=== PATIENT | male | born 1945 | race Caucasian/White ===

== ENCOUNTER 2017-06-13 16:37 | Inpatient (IN) | payer MEDICARE, MEDICAID ==
[~2017-06-13] VITALS: Ht 167.6 cm; Wt 91.6 kg
[~2017-06-13 16:37] MED LIST: ASPI-1158; ATEN50TA PO; ATOR10TA; FENO35TA2; FLOMAX; HYDR25TA; LOSARTAN PO; SUCR1ORA PO; TOLT4CAP
[2017-06-13] MEDS ORDERED: LORAZEPAM 1MG TABLET PO ONE (17:45)
[2017-06-13 18:27] LABS: BASOPHILS % 0.7 % (0.0-2.0); EOSINOPHILS % 2.6 % (0.0-5.0); HEMATOCRIT. 42.9 % (42.0-52.0); HEMOGLOBIN. 14.9 g/dL (14.0-18.0); MEAN CORPUSCULAR HEMOGLOBIN 31.9 pg (28.0-32.0); MEAN CORPUSCULAR VOLUME 91.9 fL (80.0-94.0); MEAN PLATELET VOLUME 7.5 fl (7.4-10.4); MONOCYTES % 12.7 % (2.0-8.0); PLATELET 135 x1000/uL (130-400); RED BLOOD CELL COUNT 4.66 mill/uL (4.7-6.1); RED CELL DISTRIBUTION WIDTH 12.8 % (11.6-14.6)
[2017-06-13 18:31] LABS: CHLORIDE 107 mEq/L (98-107)
[2017-06-13 18:35] LABS: CARBON DIOXIDE 27 mEq/L (21-32); ETHANOL BLOOD < 10 mg/dL
[2017-06-13 18:36] LABS: D-DIMER 0.34 mg/L FEU (<0.50); PROTHROMBIN TIME 10.9 sec (9.4-11.6)
[2017-06-13 18:40] LABS: CREATINE KINASE 79 IU/L (39-308)
[2017-06-13 18:42] LABS: TROPONIN I < 0.02 ng/mL (0.00-0.04)
[2017-06-13 19:39] LABS: CLARITY URINE CLEAR (CLEAR); COLOR URINE YELLOW (YELLOW); GLUCOSE URINE NEGATIVE (NEGATIVE); KETONES URINE NEGATIVE (NEGATIVE); LEUKOCYTE ESTERASE URINE NEGATIVE (NEGATIVE); NITRITE URINE NEGATIVE (NEGATIVE); OCCULT BLOOD URINE NEGATIVE (NEGATIVE); PROTEIN URINE NEGATIVE (NEGATIVE)
[2017-06-13 19:48] LABS: *AMPHETAMINES SCREEN URINE NEGATIVE (NEGATIVE); *BARBITURATES SCREEN URINE NEGATIVE (NEGATIVE); *BENZODIAZEPINES SCREEN URINE NEGATIVE (NEGATIVE); *COCAINE SCREEN URINE NEGATIVE (NEGATIVE); CANNABINOID URINE SCREEN NEGATIVE (NEGATIVE); METHADONE URINE SCREEN NEGATIVE (NEGATIVE); OPIATES URINE SCREEN NEGATIVE (NEGATIVE); PHENCYCLIDINE URINE SCREEN NEGATIVE (NEGATIVE)
[2017-06-13] MEDS ORDERED: ASPIRIN 81MG TABLET PO ONE (21:15)
[2017-06-14 00:26] VITALS: BP 117/83
[2017-06-14] MEDS ORDERED: OMEP40CA34 PO (00:56)
[2017-06-14] MEDS ORDERED: OMEG100016 PO (00:56)
[2017-06-14] MEDS ORDERED: IPRATROPIUM/ALBUTEROL 0.5-3(2.5)MG/3ML NEB INH PRN (01:00)
[2017-06-14] MEDS ORDERED: MAGNESIUM/ALUMINUM HYDROXIDE/SIMETHICONE 30ML UDC PO PRN (01:00)
[2017-06-14] MEDS ORDERED: ACETAMINOPHEN 325MG TABLET PO PRN (01:00)
[2017-06-14] MEDS ORDERED: CLONIDINE 0.1MG TABLET PO PRN (01:00)
[2017-06-14] MEDS ORDERED: ONDANSETRON HCL 4MG/2ML VIAL IV PRN (01:00)
[2017-06-14] MEDS ORDERED: DOCUSATE SODIUM 100MG CAPSULE PO PRN (01:00)
[2017-06-14] MEDS ORDERED: HYDROCODONE/ACETAMINOPHEN 5/325MG TABLET PO PRN (01:00)
[2017-06-14 04:00] VITALS: BP 100/61
[2017-06-14 07:43] LABS: CARBON DIOXIDE 27 mEq/L (21-32); CHLORIDE 106 mEq/L (98-107); CREATINE KINASE 71 IU/L (39-308); CREATINE KINASE MB FRACTION 0.8 ng/mL (0.5-3.6); HDL CHOLESTEROL 34 mg/dL (40-59); LDL CHOLESTEROL 98 mg/dL (5-100); TROPONIN I < 0.02 ng/mL (0.00-0.04)
[2017-06-14 07:56] LABS: BASOPHILS % 0.5 % (0.0-2.0); HEMATOCRIT. 46.4 % (42.0-52.0); HEMOGLOBIN. 16.3 g/dL (14.0-18.0); LYMPHOCYTES % 21.9 % (20.0-50.0); MEAN CORPUSCULAR HEMOGLOBIN 32.5 pg (28.0-32.0); MEAN CORPUSCULAR VOLUME 92.2 fL (80.0-94.0); MEAN PLATELET VOLUME 7.9 fl (7.4-10.4); MONOCYTES % 11.4 % (2.0-8.0); NEUTROPHILS % 64.2 % (40.0-76.0); PLATELET 143 x1000/uL (130-400); RED BLOOD CELL COUNT 5.03 mill/uL (4.7-6.1)
[2017-06-14 08:00] VITALS: BP 120/82
[2017-06-14] MEDS ORDERED: ENOXAPARIN 30MG/0.3ML SYR SUBCUT SCH (09:00)
[2017-06-14] MEDS: ASPIRIN 81MG EC TABLET PO SCH (09:02)
[2017-06-14 11:45] VITALS: BP 126/82
[2017-06-14] MEDS: LOSARTAN POTASSIUM 50 MG TABLET PO SCH (16:08)
[2017-06-14] MEDS: ATENOLOL 100 MG TABLET PO SCH (16:08)
[2017-06-14] MEDS: APIXABAN 5 MG TABLET PO SCH (16:08)
[2017-06-14 16:11] VITALS: BP 154/81
[2017-06-14 16:58] LABS: CREATINE KINASE 61 IU/L (39-308); CREATINE KINASE MB FRACTION 0.9 ng/mL (0.5-3.6); TROPONIN I < 0.02 ng/mL (0.00-0.04)
[2017-06-14 17:08] LABS: HEPATITIS B SURFACE ANTIGEN NEGATIVE
[2017-06-14 17:36] LABS: HEPATITIS B CORE AB IGM NEGATIVE
[2017-06-14 20:00] VITALS: BP 102/53
[2017-06-15] VITALS (7 sets, daily range): BP systolic 106–134; BP diastolic 62–72
[2017-06-15] MEDS: OMEPRAZOLE 20MG CAPSULE EXTENDED RELEASE PO SCH (05:50)
[2017-06-15] MEDS: APIXABAN 5 MG TABLET PO SCH (08:48)
[2017-06-15] MEDS: ASPIRIN 81MG EC TABLET PO SCH (08:48)
[2017-06-15] MEDS: ATENOLOL 100 MG TABLET PO SCH (08:48)
[2017-06-15] MEDS: LOSARTAN POTASSIUM 50 MG TABLET PO SCH (08:48)
[2017-06-15] MEDS: FISH OIL/OMEGA-3 FATTY ACIDS 1000MG CAPSULE PO SCH (08:48)
[2017-06-15] MEDS ORDERED: ASPIRIN 81MG EC TABLET PO SCH (09:00)
[2017-06-15] MEDS: METOPROLOL TARTRATE 50MG TABLET PO SCH (20:18)
[2017-06-16 04:00] VITALS: BP 130/72
[2017-06-16] MEDS: OMEPRAZOLE 20MG CAPSULE EXTENDED RELEASE PO SCH (06:14)
[2017-06-16 08:00] VITALS: BP 137/62
[2017-06-16] MEDS ORDERED: ASPIRIN 325MG EC TABLET PO SCH (09:00)
[2017-06-16] MEDS: FISH OIL/OMEGA-3 FATTY ACIDS 1000MG CAPSULE PO SCH (09:10)
[2017-06-16] MEDS: METOPROLOL TARTRATE 50MG TABLET PO SCH (09:10)
[2017-06-16] MEDS: LOSARTAN POTASSIUM 50 MG TABLET PO SCH (09:10)
[2017-06-16 12:00] VITALS: BP 128/62
[2017-06-16 14:03] VITALS: BP 128/65
[2017-06-16 16:03] LABS: HEPATITIS A AB IGM NEGATIVE (NEGATIVE)
== END 2017-06-16 14:45 | disposition home or self-care (01) | DRG 69 ==
LOC: ER 18:07 → 5WST 21:03 → ENRESERV 21:42
PROVIDERS: ADMIT Internal Medicine; ATTEND Internal Medicine
DX: G45.9 Transient cerebral ischemic attack, unspecified (principal); I48.0 Paroxysmal atrial fibrillation; J44.9 Chronic obstructive pulmonary disease, unspecified; I10 Essential (primary) hypertension; Z79.01 Long term (current) use of anticoagulants; Z79.82 Long term (current) use of aspirin; Z79.899 Other long term (current) drug therapy; Z87.891 Personal history of nicotine dependence; Z88.1 Allergy status to other antibiotic agents
CPT/HCPCS: 36415; 70450; 70551; 71010; 80048; 80053; 80061; 80305; 81003; 82550; 82553; 83735; 83880; 84443; 84484; 85025; 85379; 85610; 86705; 86709; 86803; 87340; 93005; 93306; 93880; 96372; 99285; G0482; J1650

== ENCOUNTER 2019-05-21 12:31 | Emergency (ER) | payer MEDICARE, MEDICAID ==
[~2019-05-21] VITALS: Ht 165.1 cm; Wt 75.0 kg
[~2019-05-21 12:31] MED LIST changes: -ATOR10TA; -FENO35TA2; -FLOMAX; -HYDR25TA; +OMEG100016 PO; +OMEP40CA34 PO; -SUCR1ORA PO; -TOLT4CAP
[2019-05-21] MEDS ORDERED: ALBUTEROL (0.083%) 2.5MG/3ML NEB HHN STA (12:49)
[2019-05-21] MEDS ORDERED: PREDNISONE 20MG TABLET PO STA (13:31)
[2019-05-21 14:35] VITALS: BP 109/70
== END 2019-05-21 14:42 | disposition home or self-care (01) ==
LOC: ER 13:27
DX: R05 Cough (principal); I10 Essential (primary) hypertension; R06.02 Shortness of breath; R50.9 Fever, unspecified; Z98.890 Other specified postprocedural states; Z88.1 Allergy status to other antibiotic agents
CPT/HCPCS: 71045; 94640; 99283; J7512; J7611

== ENCOUNTER 2020-07-10 11:58 | Inpatient (IN) | payer MEDICARE, MEDICAID ==
[~2020-07-10] VITALS: Ht 172.7 cm; Wt 101.2 kg
[~2020-07-10 11:58] MED LIST changes: +OMEP40CA12 PO; -OMEP40CA34 PO
[2020-07-10] MEDS ORDERED: SODIUM CHLORIDE 0.9% 1000ML BAG (SEPSIS BOLUS) IV ONE (12:15)
[2020-07-10] MEDS ORDERED: VANCOMYCIN 1 G PREMIX 200 ML IV ONE (12:45)
[2020-07-10] MEDS ORDERED: DEXAMETHASONE 10 MG/ML VIAL IV ONE (12:45)
[2020-07-10] MEDS ORDERED: PIPERACILLIN/TAZ 3.375G PREMIX 50 ML IV ONE (12:45)
[2020-07-10] MEDS ORDERED: SODIUM CHLORIDE 0.9% 1,000 ML IV ONE (12:45)
[2020-07-10 12:48] LABS: BASOPHILS % 0.1 % (0.0-2.0); HEMATOCRIT. 43.2 % (42.0-52.0); LYMPHOCYTES % 15.2 % (20.0-50.0); MEAN CORPUSCULAR HEMOGLOBIN 31.8 pg (28.0-32.0); MEAN CORPUSCULAR VOLUME 91.8 fL (80.0-94.0); MEAN PLATELET VOLUME 8.4 fl (7.4-10.4); MONOCYTES % 14.1 % (2.0-8.0); NEUTROPHILS % 70.6 % (40.0-76.0); PLATELET 114 x1000/uL (130-400); RED CELL DISTRIBUTION WIDTH 12.8 % (11.6-14.6)
[2020-07-10 12:48] LABS: CLARITY URINE CLOUDY (CLEAR); COLOR URINE YELLOW (YELLOW); KETONES URINE NEGATIVE (NEGATIVE); LEUKOCYTE ESTERASE URINE NEGATIVE (NEGATIVE); NITRITE URINE NEGATIVE (NEGATIVE); OCCULT BLOOD URINE 2+ (NEGATIVE); PROTEIN URINE 4+ (NEGATIVE); SPECIFIC GRAVITY URINE 1.018 (1.005-1.030)
[2020-07-10 12:55] LABS: CHLORIDE 99 mEq/L (98-107)
[2020-07-10 13:04] LABS: BG BASE EXCESS 0.2 mmol/L (-2.0-2.0); BG CARBOXYHEMOGLOBIN 1.2 % (0.5-1.5); BG DEOXYHEMOGLOBIN 1.8 % (0.0-5.0); BG FRACTION INSPIRED OXYGEN 100; BG HCO3 ACT 23.1 mmol/L (22.0-26.0); BG METHEMOGLOBIN 0.1 % (0.0-1.5); BG OXYGEN SATURATION 98.2 % (92.0-98.5); BG OXYHEMOGLOBIN 96.9 % (94.0-97.0); BG PCO2 32.4 mmHg (35.0-45.0); BG PO2 125.6 mmHg (75.0-100.0); BG SAMPLE SITE RIGHT RADIAL; BG TOTAL HEMOGLOBIN 15.1 g/dL (12.0-18.0); BG VENT MODE MASK - NRB
[2020-07-10] MEDS ORDERED: SODIUM CHLORIDE 0.9% 1,500 ML IV ONE (13:45)
[2020-07-10] MEDS ORDERED: NOREPINEPHRINE 8MG/250ML PMX 250 ML IV ONE (13:45)
[2020-07-10] MEDS ORDERED: NOREPINEPHRINE 8 MG in DEXT 5% WATER 242 ML IV PRN (14:00)
[2020-07-10] MEDS ORDERED: LIDOCAINE HCL 1% 20ML VIAL (Pyxis) INJ ONE (14:33)
[2020-07-10 15:43] LABS: PROTHROMBIN TIME 10.8 sec (9.6-11.0)
[2020-07-10] MEDS ORDERED: IOHEXOL-350 100 ML BOTTLE ONE (15:51)
[2020-07-10] MEDS ORDERED: ONDANSETRON HCL 4MG/2ML INJ IV PRN (16:00)
[2020-07-10] MEDS: ENOXAPARIN 80MG/0.8ML SYR SUBCUT SCH (17:30)
[2020-07-10] MEDS: PIPERACILLIN/TAZ 3.375G PREMIX 50 ML IV SCH (18:12)
[2020-07-10 18:36] LABS: BG BASE EXCESS -2.5 mmol/L (-2.0-2.0); BG DEOXYHEMOGLOBIN 7.8 % (0.0-5.0); BG FRACTION INSPIRED OXYGEN 100; BG HCO3 ACT 22.6 mmol/L (22.0-26.0); BG OXYGEN SATURATION 92.1 % (92.0-98.5); BG OXYHEMOGLOBIN 91.2 % (94.0-97.0); BG PCO2 40.3 mmHg (35.0-45.0); BG PH 7.367 (7.350-7.450); BG PO2 69.5 mmHg (75.0-100.0); BG SAMPLE SITE RIGHT RADIAL; BG TOTAL HEMOGLOBIN 15.7 g/dL (12.0-18.0); BG VENT MODE MASK - NRB
[2020-07-10] MEDS ORDERED: ALBUTEROL (0.083%) 2.5MG/3ML NEB ONE (20:11)
[2020-07-10] MEDS ORDERED: IPRATROPIUM BROMIDE (0.02%) 0.5MG/2.5ML NEB ONE (20:11)
[2020-07-10] MEDS ORDERED: ETOMIDATE 2MG/ML 10ML VIAL IV ONE (20:30)
[2020-07-10] MEDS ORDERED: SUCCINYLCHOLINE CHLORIDE 200MG/10ML IV ONE (20:30)
[2020-07-10] MEDS ORDERED: PROPOFOL 10MG/ML 100ML 100 ML IV ONE (20:30)
[2020-07-10] MEDS: BLOOD SUGAR DIAGNOSTIC STRIP TEST SCH (21:00)
[2020-07-10 23:33] LABS: CREATINE KINASE 654 IU/L (39-308)
[2020-07-10 23:36] LABS: CREATINE KINASE MB FRACTION 10.4 ng/mL (0.5-3.6)
[2020-07-11] MEDS ORDERED: PROPOFOL 10MG/ML 100ML 100 ML IV SCH (00:30)
[2020-07-11] MEDS: CEFTRIAXONE 2 G in DEXTROSE 5% WATER 50 ML IV SCH (01:00)
[2020-07-11] MEDS ORDERED: REMDESIVIR 200 MG in SODIUM CHLORIDE 0.9% 250 ML IV SCH ×2 (01:00→08:00)
[2020-07-11] MEDS: IPRATROPIUM/ALBUTEROL 0.5-3(2.5)MG/3ML NEB HHN SCH ×5 (01:54→20:00)
[2020-07-11] MEDS: AZITHROMYCIN 500 MG in DEXT 5% WATER 250 ML IV SCH (02:00)
[2020-07-11] MEDS: BLOOD SUGAR DIAGNOSTIC STRIP TEST SCH ×17 (02:18→23:03)
[2020-07-11] MEDS: LORAZEPAM 2MG/ML CPJ IV PRN (03:41)
[2020-07-11 04:59] LABS: BG BASE EXCESS -9.3 mmol/L (-2.0-2.0); BG CARBOXYHEMOGLOBIN 1.1 % (0.5-1.5); BG DEOXYHEMOGLOBIN 14.2 % (0.0-5.0); BG FRACTION INSPIRED OXYGEN 100; BG HCO3 ACT 19.1 mmol/L (22.0-26.0); BG METHEMOGLOBIN 0.2 % (0.0-1.5); BG OXYGEN SATURATION 85.6 % (92.0-98.5); BG OXYHEMOGLOBIN 84.5 % (94.0-97.0); BG PCO2 50.8 mmHg (35.0-45.0); BG PH 7.193 (7.350-7.450); BG PO2 58.9 mmHg (75.0-100.0); BG TOTAL RESPIRATORY RATE 28 b/min; BG VENT MODE VENT - AC
[2020-07-11 05:14] LABS: HEMATOCRIT. 47.6 % (42.0-52.0); HEMOGLOBIN. 15.3 g/dL (14.0-18.0); MEAN CORPUSCULAR HEMOGLOBIN 30.9 pg (28.0-32.0); MEAN CORPUSCULAR VOLUME 95.9 fL (80.0-94.0); MEAN PLATELET VOLUME 8.6 fl (7.4-10.4); PLATELET 166 x1000/uL (130-400); RED BLOOD CELL COUNT 4.96 mill/uL (4.7-6.1)
[2020-07-11 05:24] LABS: CHLORIDE 97 mEq/L (98-107)
[2020-07-11 05:35] LABS: LDL CHOLESTEROL 76 mg/dL (5-100)
[2020-07-11 05:36] LABS: CREATINE KINASE 549 IU/L (39-308); CREATINE KINASE MB FRACTION 10.9 ng/mL (0.5-3.6); HDL CHOLESTEROL 20 mg/dL (40-59); T4 FREE 1.34 ng/dL (0.76-1.46)
[2020-07-11] MEDS: PIPERACILLIN/TAZ 3.375G PREMIX 50 ML IV SCH ×3 (06:51→13:21)
[2020-07-11] MEDS ORDERED: VANCOMYCIN 1 G PREMIX 200 ML IV SCH (07:00)
[2020-07-11] MEDS ORDERED: DEXAMETHASONE 4MG/ML 1ML VIAL IV SCH (09:00)
[2020-07-11] MEDS ORDERED: INSULIN REGULAR (DRIP) 100 UNITS in SODIUM CHLORIDE 0.9% 99 ML IV PRN (09:00)
[2020-07-11 09:29] LABS: PLATELET ESTIMATE NORMAL
[2020-07-11] MEDS ORDERED: DEXTROSE 50% WATER 50ML SYRINGE IV PRN ×2 (09:30)
[2020-07-11] MEDS: INSULIN REGULAR (DRIP) 100 UNITS in SODIUM CHLORIDE 0.9% 99 ML IV SCH (10:49)
[2020-07-11] MEDS: ENOXAPARIN 80MG/0.8ML SYR SUBCUT SCH (11:01)
[2020-07-11 11:41] LABS: BG BASE EXCESS -8.5 mmol/L (-2.0-2.0); BG CARBOXYHEMOGLOBIN 1.3 % (0.5-1.5); BG DEOXYHEMOGLOBIN 18.1 % (0.0-5.0); BG HCO3 ACT 19.6 mmol/L (22.0-26.0); BG METHEMOGLOBIN 0.2 % (0.0-1.5); BG OXYGEN SATURATION 81.6 % (92.0-98.5); BG OXYHEMOGLOBIN 80.4 % (94.0-97.0); BG PCO2 49.9 mmHg (35.0-45.0); BG PH 7.212 (7.350-7.450); BG PO2 50.4 mmHg (75.0-100.0); BG TOTAL HEMOGLOBIN 16.5 g/dL (12.0-18.0)
[2020-07-11] MEDS ORDERED: SODIUM BICARBONATE 8.4% 1 MEQ/ML 50ML SYR IV ONE (12:00)
[2020-07-11] MEDS ORDERED: SODIUM BICARBONATE 8.4% 1 MEQ/ML 50ML SYR IV NR (12:15)
[2020-07-11 14:38] LABS: BG BASE EXCESS -6.2 mmol/L (-2.0-2.0); BG CARBOXYHEMOGLOBIN 1.2 % (0.5-1.5); BG DEOXYHEMOGLOBIN 10.4 % (0.0-5.0); BG FRACTION INSPIRED OXYGEN 100; BG HCO3 ACT 22.2 mmol/L (22.0-26.0); BG METHEMOGLOBIN 0.1 % (0.0-1.5); BG OXYGEN SATURATION 89.5 % (92.0-98.5); BG OXYHEMOGLOBIN 88.3 % (94.0-97.0); BG PCO2 54.7 mmHg (35.0-45.0); BG PH 7.226 (7.350-7.450); BG PO2 61.8 mmHg (75.0-100.0); BG SAMPLE SITE RIGHT RADIAL; BG TOTAL RESPIRATORY RATE 25 b/min; BG VENT MODE VENT - AC
[2020-07-11] MEDS ORDERED: SODIUM BICARBONATE 100 MEQ in SODIUM CHLORIDE 0.9% 1,000 ML IV SCH (15:00)
[2020-07-11] MEDS: FAMOTIDINE 20MG/2ML VIAL IV SCH (16:10)
[2020-07-11 21:37] LABS: CHLORIDE 97 mEq/L (98-107)
[2020-07-12] VITALS (44 sets, daily range): BP systolic 58–177; BP diastolic 25–98
[2020-07-12] MEDS: ENOXAPARIN 80MG/0.8ML SYR SUBCUT SCH
[2020-07-12] MEDS ORDERED: NOREPINEPHRINE 8 MG in DEXT 5% WATER 242 ML IV SCH (01:00)
[2020-07-12] MEDS: CEFTRIAXONE 2 G in DEXTROSE 5% WATER 50 ML IV SCH (01:15)
[2020-07-12] MEDS: BLOOD SUGAR DIAGNOSTIC STRIP TEST SCH ×16 (01:19→22:00)
[2020-07-12] MEDS: AZITHROMYCIN 500 MG in DEXT 5% WATER 250 ML IV SCH (01:37)
[2020-07-12 05:38] LABS: HEMATOCRIT. 43.5 % (42.0-52.0); HEMOGLOBIN. 14.3 g/dL (14.0-18.0); MEAN CORPUSCULAR HEMOGLOBIN 30.6 pg (28.0-32.0); MEAN CORPUSCULAR VOLUME 92.9 fL (80.0-94.0); MEAN PLATELET VOLUME 9.2 fl (7.4-10.4); PLATELET 158 x1000/uL (130-400); RED BLOOD CELL COUNT 4.68 mill/uL (4.7-6.1); RED CELL DISTRIBUTION WIDTH 13.1 % (11.6-14.6)
[2020-07-12 06:51] LABS: CHLORIDE 94 mEq/L (98-107)
[2020-07-12 07:39] LABS: NUCLEATED RED BLOOD CELLS 1 /100 WBC; PLATELET ESTIMATE NORMAL
[2020-07-12] MEDS: IPRATROPIUM/ALBUTEROL 0.5-3(2.5)MG/3ML NEB HHN SCH ×2 (08:07)
[2020-07-12] MEDS: DEXAMETHASONE 10 MG/ML VIAL IV SCH (08:28)
[2020-07-12 08:43] LABS: BG BASE EXCESS -3.9 mmol/L (-2.0-2.0); BG CARBOXYHEMOGLOBIN 0.9 % (0.5-1.5); BG DEOXYHEMOGLOBIN 10.1 % (0.0-5.0); BG FRACTION INSPIRED OXYGEN 100; BG HCO3 ACT 23.3 mmol/L (22.0-26.0); BG OXYGEN SATURATION 89.8 % (92.0-98.5); BG PCO2 50.8 mmHg (35.0-45.0); BG TOTAL HEMOGLOBIN 15.1 g/dL (12.0-18.0); BG VENT MODE VENT - AC
[2020-07-12] MEDS ORDERED: REMDESIVIR 100 MG in SODIUM CHLORIDE 0.9% 250 ML IV SCH (09:00)
[2020-07-12] MEDS: FAMOTIDINE 20MG/2ML VIAL IV SCH (09:15)
[2020-07-12] MEDS ORDERED: SODIUM BICARBONATE 8.4% 1 MEQ/ML 50ML SYR IV NR (10:00)
[2020-07-12] MEDS ORDERED: ENOXAPARIN 80MG/0.8ML SYR SUBCUT NR (10:45)
[2020-07-12] MEDS: INSULIN REGULAR (DRIP) 100 UNITS in SODIUM CHLORIDE 0.9% 99 ML IV SCH (13:26)
[2020-07-12] MEDS ORDERED: INSULIN GLARGINE UD 100 UNITS/ML SYR SUBCUT NR (14:30)
[2020-07-12] MEDS: PROPOFOL 10MG/ML 100ML 100 ML IV SCH ×2 (14:35→17:58)
[2020-07-12] MEDS: INSULIN LISPRO 100 UNITS/ML SUBCUT SCH ×3 (15:27→22:00)
[2020-07-12] MEDS ORDERED: NOREPINEPHRINE 8 MG in DEXTROSE 5% WATER 250 ML IV PRN (15:30)
[2020-07-12] MEDS: SODIUM CHLORIDE 0.9% 1,000 ML IV SCH (15:36)
[2020-07-12] MEDS ORDERED: NOREPINEPHRINE 8MG/250ML PMX 250 ML IV PRN (15:45)
[2020-07-12 17:26] LABS: HEPATITIS B SURFACE ANTIGEN NEGATIVE
[2020-07-12] MEDS: ENOXAPARIN 100MG/ML SYR SUBCUT SCH (21:18)
[2020-07-12] MEDS: ACETAMINOPHEN 325MG TABLET PO PRN (21:19)
[2020-07-12] MEDS: ONDANSETRON HCL 4MG/2ML INJ IV PRN (21:19)
[2020-07-12] MEDS: PROPOFOL 10MG/ML 100ML 100 ML IV PRN (21:21)
[2020-07-12] MEDS ORDERED: INSULIN GLARGINE UD 100 UNITS/ML SYR SUBCUT SCH (22:00)
[2020-07-12] MEDS: NOREPINEPHRINE 8 MG in DEXTROSE 5% WATER 250 ML IV PRN (23:36)
[2020-07-13] VITALS (92 sets, daily range): BP systolic 82–186; BP diastolic 45–130
[2020-07-13] MEDS: CEFTRIAXONE 2 G in DEXTROSE 5% WATER 50 ML IV SCH (01:05)
[2020-07-13] MEDS: AZITHROMYCIN 500 MG in DEXT 5% WATER 250 ML IV SCH (01:47)
[2020-07-13] MEDS: INSULIN LISPRO 100 UNITS/ML SUBCUT SCH ×5 (02:00→22:00)
[2020-07-13] MEDS: BLOOD SUGAR DIAGNOSTIC STRIP TEST SCH ×6 (02:00→22:00)
[2020-07-13] MEDS: PROPOFOL 10MG/ML 100ML 100 ML IV PRN ×4 (04:24→17:25)
[2020-07-13 05:38] LABS: HEMOGLOBIN. 13.8 g/dL (14.0-18.0); MEAN CORPUSCULAR HEMOGLOBIN 31.3 pg (28.0-32.0); MEAN CORPUSCULAR VOLUME 92.9 fL (80.0-94.0); MEAN PLATELET VOLUME 8.9 fl (7.4-10.4); PLATELET 194 x1000/uL (130-400); RED BLOOD CELL COUNT 4.42 mill/uL (4.7-6.1); RED CELL DISTRIBUTION WIDTH 13.5 % (11.6-14.6)
[2020-07-13 05:46] LABS: CHLORIDE 95 mEq/L (98-107)
[2020-07-13 05:59] LABS: CREATINE KINASE 929 IU/L (39-308)
[2020-07-13] MEDS: NOREPINEPHRINE 8 MG in DEXTROSE 5% WATER 250 ML IV PRN ×3 (07:46→16:43)
[2020-07-13] MEDS: FAMOTIDINE 20MG/2ML VIAL IV SCH (08:27)
[2020-07-13] MEDS: DEXAMETHASONE 10 MG/ML VIAL IV SCH (08:27)
[2020-07-13] MEDS: ENOXAPARIN 100MG/ML SYR SUBCUT SCH (08:28)
[2020-07-13] MEDS: IPRATROPIUM/ALBUTEROL 0.5-3(2.5)MG/3ML NEB HHN SCH ×4 (08:42→20:16)
[2020-07-13 09:26] LABS: BG BASE EXCESS -4.2 mmol/L (-2.0-2.0); BG CARBOXYHEMOGLOBIN 0.1 % (0.5-1.5); BG FRACTION INSPIRED OXYGEN 100; BG HCO3 ACT 21.3 mmol/L (22.0-26.0); BG METHEMOGLOBIN 0.3 % (0.0-1.5); BG OXYHEMOGLOBIN 91.6 % (94.0-97.0); BG PCO2 40.6 mmHg (35.0-45.0); BG PH 7.337 (7.350-7.450); BG PO2 67.1 mmHg (75.0-100.0); BG SAMPLE SITE RIGHT RADIAL; BG TOTAL HEMOGLOBIN 15.3 g/dL (12.0-18.0); BG VENT MODE VENT - AC
[2020-07-13] MEDS: MIDODRINE HCL 5MG TABLET PO SCH ×3 (10:54→17:27)
[2020-07-13] MEDS: SODIUM CHLORIDE 0.9% 1,000 ML IV SCH (10:55)
[2020-07-13 13:13] LABS: PLATELET ESTIMATE NORMAL
[2020-07-13] MEDS: LORAZEPAM 2MG/ML CPJ IV PRN (22:00)
[2020-07-13] MEDS ORDERED: INSULIN GLARGINE UD 100 UNITS/ML SYR SUBCUT SCH (22:00)
[2020-07-14] VITALS (83 sets, daily range): BP systolic 83–172; BP diastolic 37–119
[2020-07-14] MEDS: IPRATROPIUM/ALBUTEROL 0.5-3(2.5)MG/3ML NEB HHN SCH ×6 (00:07→20:25)
[2020-07-14] MEDS: CEFTRIAXONE 2 G in DEXTROSE 5% WATER 50 ML IV SCH (00:51)
[2020-07-14] MEDS: AZITHROMYCIN 500 MG in DEXT 5% WATER 250 ML IV SCH (00:51)
[2020-07-14] MEDS: DILTIAZEM HCL 125 MG in DEXT 5% WATER 100 ML IV PRN (00:54)
[2020-07-14] MEDS: INSULIN LISPRO 100 UNITS/ML SUBCUT SCH ×6 (02:00→22:00)
[2020-07-14] MEDS: BLOOD SUGAR DIAGNOSTIC STRIP TEST SCH ×5 (02:00→22:00)
[2020-07-14] MEDS: MORPHINE SULFATE 2 MG/ML CPJ (NOT FOR IM USE) IV PRN ×2 (03:30→09:43)
[2020-07-14 05:45] LABS: HEMATOCRIT. 40.2 % (42.0-52.0); HEMOGLOBIN. 13.6 g/dL (14.0-18.0); MEAN CORPUSCULAR HEMOGLOBIN 31.3 pg (28.0-32.0); MEAN CORPUSCULAR VOLUME 92.3 fL (80.0-94.0); MEAN PLATELET VOLUME 8.9 fl (7.4-10.4); PLATELET 199 x1000/uL (130-400); RED BLOOD CELL COUNT 4.35 mill/uL (4.7-6.1); RED CELL DISTRIBUTION WIDTH 13.1 % (11.6-14.6)
[2020-07-14 05:49] LABS: CHLORIDE 98 mEq/L (98-107)
[2020-07-14 06:03] LABS: PHOSPHORUS 3.7 mg/dL (2.5-4.9)
[2020-07-14] MEDS: SODIUM CHLORIDE 0.9% 1,000 ML IV SCH (07:30)
[2020-07-14] MEDS: FAMOTIDINE 20MG/2ML VIAL IV SCH (08:47)
[2020-07-14] MEDS: DEXAMETHASONE 10 MG/ML VIAL IV SCH (08:47)
[2020-07-14] MEDS: MIDODRINE HCL 5MG TABLET PO SCH ×2 (08:47→13:33)
[2020-07-14] MEDS: LORAZEPAM 2MG/ML CPJ IV PRN (08:50)
[2020-07-14] MEDS ORDERED: ENOXAPARIN 100MG/ML SYR SUBCUT SCH (09:00)
[2020-07-14 09:06] LABS: BG CARBOXYHEMOGLOBIN 0.3 % (0.5-1.5); BG DEOXYHEMOGLOBIN 4.1 % (0.0-5.0); BG FRACTION INSPIRED OXYGEN 100; BG HCO3 ACT 24.6 mmol/L (22.0-26.0); BG METHEMOGLOBIN 0.2 % (0.0-1.5); BG OXYGEN SATURATION 95.9 % (92.0-98.5); BG OXYHEMOGLOBIN 95.4 % (94.0-97.0); BG PCO2 44.1 mmHg (35.0-45.0); BG PH 7.364 (7.350-7.450); BG PO2 85.6 mmHg (75.0-100.0); BG SAMPLE SITE RIGHT RADIAL; BG TOTAL HEMOGLOBIN 14.7 g/dL (12.0-18.0); BG VENT MODE VENT - AC
[2020-07-14 09:09] LABS: IMMUNOGLOBULIN A 370 mg/dL (61-437); IMMUNOGLOBULIN G 1331 mg/dL (603-1613); IMMUNOGLOBULIN M 62 mg/dL (15-143)
[2020-07-14] MEDS ORDERED: MIDAZOLAM HCL 50 MG in DEXTROSE 5% WATER 40 ML IV PRN (10:15)
[2020-07-14] MEDS ORDERED: FENTANYL CITRATE/PF 500 MCG in SODIUM CHLORIDE 0.9% 40 ML IV PRN (10:15)
[2020-07-14 10:39] LABS: PLATELET ESTIMATE NORMAL
[2020-07-14] MEDS: MIDAZOLAM HCL 100 MG in DEXT 5% WATER 100 ML IV PRN ×2 (11:30→18:36)
[2020-07-14] MEDS: FENTANYL CITRATE/PF 1,000 MCG in SODIUM CHLORIDE 0.9% 100 ML IV PRN (11:31)
[2020-07-14] MEDS: INSULIN GLARGINE UD 100 UNITS/ML SYR SUBCUT SCH (22:00)
[2020-07-15] VITALS (89 sets, daily range): BP systolic 96–202; BP diastolic 56–123
[2020-07-15] MEDS: CEFTRIAXONE 2 G in DEXTROSE 5% WATER 50 ML IV SCH (00:17)
[2020-07-15] MEDS: AZITHROMYCIN 500 MG in DEXT 5% WATER 250 ML IV SCH (00:18)
[2020-07-15] MEDS: IPRATROPIUM/ALBUTEROL 0.5-3(2.5)MG/3ML NEB HHN SCH ×6 (00:21→21:16)
[2020-07-15] MEDS: FENTANYL CITRATE/PF 1,000 MCG in SODIUM CHLORIDE 0.9% 100 ML IV PRN ×2 (01:21→21:32)
[2020-07-15] MEDS: BLOOD SUGAR DIAGNOSTIC STRIP TEST SCH ×6 (02:00→21:30)
[2020-07-15] MEDS: INSULIN LISPRO 100 UNITS/ML SUBCUT SCH ×6 (02:00→22:00)
[2020-07-15] MEDS: SODIUM CHLORIDE 0.9% 1,000 ML IV SCH ×2 (03:30→23:30)
[2020-07-15 05:42] LABS: HEMATOCRIT. 38.9 % (42.0-52.0); HEMOGLOBIN. 13.3 g/dL (14.0-18.0); MEAN CORPUSCULAR HEMOGLOBIN 31.9 pg (28.0-32.0); MEAN CORPUSCULAR VOLUME 93.3 fL (80.0-94.0); MEAN PLATELET VOLUME 8.7 fl (7.4-10.4); PLATELET 196 x1000/uL (130-400); RED BLOOD CELL COUNT 4.17 mill/uL (4.7-6.1); RED CELL DISTRIBUTION WIDTH 13.5 % (11.6-14.6)
[2020-07-15 06:04] LABS: CHLORIDE 103 mEq/L (98-107)
[2020-07-15 08:07] LABS: PLATELET ESTIMATE NORMAL
[2020-07-15 09:21] LABS: BG BASE EXCESS -0.9 mmol/L (-2.0-2.0); BG CARBOXYHEMOGLOBIN 0.4 % (0.5-1.5); BG DEOXYHEMOGLOBIN 7.2 % (0.0-5.0); BG FRACTION INSPIRED OXYGEN 100; BG METHEMOGLOBIN 0.3 % (0.0-1.5); BG OXYGEN SATURATION 92.7 % (92.0-98.5); BG OXYHEMOGLOBIN 92.1 % (94.0-97.0); BG PCO2 52.2 mmHg (35.0-45.0); BG PH 7.315 (7.350-7.450); BG PO2 72.3 mmHg (75.0-100.0); BG SAMPLE SITE RIGHT RADIAL; BG TOTAL HEMOGLOBIN 13.5 g/dL (12.0-18.0); BG TOTAL RESPIRATORY RATE 24 b/min; BG VENT MODE VENT - AC
[2020-07-15] MEDS: FAMOTIDINE 20MG/2ML VIAL IV SCH (09:21)
[2020-07-15] MEDS: DEXAMETHASONE 10 MG/ML VIAL IV SCH (09:21)
[2020-07-15] MEDS: MIDODRINE HCL 5MG TABLET PO SCH ×3 (09:21→17:32)
[2020-07-15] MEDS: ENOXAPARIN 100MG/ML SYR SUBCUT SCH ×2 (09:22→21:30)
[2020-07-15] MEDS: DILTIAZEM HCL 125 MG in DEXT 5% WATER 100 ML IV PRN (09:33)
[2020-07-15 10:06] LABS: MICROALBUMIN RANDOM URINE 100.5 ug/mL (Not Estab.)
[2020-07-15] MEDS: INSULIN GLARGINE UD 100 UNITS/ML SYR SUBCUT SCH ×2 (10:29→22:00)
[2020-07-15] MEDS: PHENYLEPHRINE 50 MG in DEXT 5% WATER 245 ML IV PRN (12:34)
[2020-07-15] MEDS ORDERED: BISACODYL 10MG SUPP PR NR (14:30)
[2020-07-15] MEDS: MIDAZOLAM HCL 100 MG in DEXT 5% WATER 100 ML IV PRN (15:02)
[2020-07-15] MEDS: METOCLOPRAMIDE HCL 10MG/2ML VIAL IV SCH (17:32)
[2020-07-15] MEDS: LORAZEPAM 2MG/ML CPJ IV PRN (21:31)
[2020-07-15] MEDS: ACETAMINOPHEN 325MG TABLET PO PRN (21:32)
[2020-07-15] MEDS: ONDANSETRON HCL 4MG/2ML INJ IV PRN (21:32)
[2020-07-16] VITALS (91 sets, daily range): BP systolic 101–142; BP diastolic 59–85
[2020-07-16] MEDS: IPRATROPIUM/ALBUTEROL 0.5-3(2.5)MG/3ML NEB HHN SCH ×6 (00:44→20:42)
[2020-07-16] MEDS: BLOOD SUGAR DIAGNOSTIC STRIP TEST SCH ×6 (02:00→21:58)
[2020-07-16] MEDS: INSULIN LISPRO 100 UNITS/ML SUBCUT SCH ×5 (02:00→22:58)
[2020-07-16] MEDS: CEFTRIAXONE 2 G in DEXTROSE 5% WATER 50 ML IV SCH (03:27)
[2020-07-16] MEDS: METOCLOPRAMIDE HCL 10MG/2ML VIAL IV SCH ×4 (03:28→17:04)
[2020-07-16] MEDS: MIDAZOLAM HCL 100 MG in DEXT 5% WATER 100 ML IV PRN (03:30)
[2020-07-16 06:33] LABS: HEMATOCRIT. 36.6 % (42.0-52.0); HEMOGLOBIN. 12.2 g/dL (14.0-18.0); MEAN CORPUSCULAR HEMOGLOBIN 31.4 pg (28.0-32.0); MEAN CORPUSCULAR VOLUME 93.9 fL (80.0-94.0); MEAN PLATELET VOLUME 8.5 fl (7.4-10.4); PLATELET 139 x1000/uL (130-400); RED CELL DISTRIBUTION WIDTH 13.4 % (11.6-14.6)
[2020-07-16 06:51] LABS: PHOSPHORUS 4.4 mg/dL (2.5-4.9)
[2020-07-16] MEDS ORDERED: SODIUM POLYSTYRENE SULFONATE 15 G/60 ML BOT NG ONE (08:15)
[2020-07-16 08:23] LABS: BG BASE EXCESS -0.3 mmol/L (-2.0-2.0); BG CARBOXYHEMOGLOBIN 0.5 % (0.5-1.5); BG DEOXYHEMOGLOBIN 11.8 % (0.0-5.0); BG HCO3 ACT 25.6 mmol/L (22.0-26.0); BG METHEMOGLOBIN 0.3 % (0.0-1.5); BG OXYGEN SATURATION 88.1 % (92.0-98.5); BG OXYHEMOGLOBIN 87.4 % (94.0-97.0); BG PCO2 46.7 mmHg (35.0-45.0); BG PH 7.357 (7.350-7.450); BG PO2 57.8 mmHg (75.0-100.0); BG SAMPLE SITE RIGHT RADIAL; BG TOTAL HEMOGLOBIN 12.9 g/dL (12.0-18.0); BG VENT MODE VENT - AC
[2020-07-16] MEDS: MIDODRINE HCL 5MG TABLET PO SCH ×3 (09:29→17:05)
[2020-07-16] MEDS: ENOXAPARIN 100MG/ML SYR SUBCUT SCH ×2 (09:29→21:57)
[2020-07-16] MEDS: FAMOTIDINE 20MG/2ML VIAL IV SCH (09:30)
[2020-07-16] MEDS: DEXAMETHASONE 4MG/ML 1ML VIAL IV SCH (09:30)
[2020-07-16 10:10] LABS: ANTI-MYELOPEROXIDASE AB < 9.0 U/mL (0.0-9.0); ANTI-PROTEINASE 3 ABS 4.9 U/mL (0.0-3.5)
[2020-07-16] MEDS: INSULIN GLARGINE UD 100 UNITS/ML SYR SUBCUT SCH ×2 (10:26→22:55)
[2020-07-16] MEDS ORDERED: FUROSEMIDE 40MG/4ML VIAL IVP NR (13:00)
[2020-07-16 13:06] LABS: ATYPICAL P-ANCA <1:20 titer (Neg:<1:20); CYTOPLASMIC C-ANCA <1:20 titer (Neg:<1:20); PERINUCLEAR P-ANCA <1:20 titer (Neg:<1:20)
[2020-07-16] MEDS: FENTANYL CITRATE/PF 1,000 MCG in SODIUM CHLORIDE 0.9% 100 ML IV PRN (13:13)
[2020-07-16 13:28] LABS: PLATELET ESTIMATE NORMAL
[2020-07-16 16:48] LABS: BG BASE EXCESS 2.2 mmol/L (-2.0-2.0); BG CARBOXYHEMOGLOBIN 0.5 % (0.5-1.5); BG DEOXYHEMOGLOBIN 13.7 % (0.0-5.0); BG HCO3 ACT 29.5 mmol/L (22.0-26.0); BG METHEMOGLOBIN 0.3 % (0.0-1.5); BG OXYGEN SATURATION 86.2 % (92.0-98.5); BG OXYHEMOGLOBIN 85.5 % (94.0-97.0); BG PCO2 58.2 mmHg (35.0-45.0); BG PH 7.323 (7.350-7.450); BG PO2 56.6 mmHg (75.0-100.0); BG SAMPLE SITE RIGHT RADIAL; BG TOTAL HEMOGLOBIN 13.2 g/dL (12.0-18.0); BG VENT MODE VENT - AC
[2020-07-16 17:09] LABS: A/G RATIO 0.7 (0.7-1.7); ALBUMIN 2.9 g/dL (2.9-4.4); ALPHA-1-GLOBULIN 0.6 g/dL (0.0-0.4); ALPHA-2-GLOBULIN 1.1 g/dL (0.4-1.0); ANTI-DNA DOUBLE STRANDED QUANT 1 IU/mL (0-9); ANTI-NUCLEAR ANTIBODIES DIRECT Negative (Negative); GAMMA GLOBULINS 1.5 g/dL (0.4-1.8); GLOBULIN TOTAL 4.2 g/dL (2.2-3.9); M-SPIKE Not Observed g/dL (Not Observed); TOTAL PROTEIN SERUM 7.1 g/dL (6.0-8.5)
[2020-07-16] MEDS: FENTANYL CITRATE/PF 2,500 MCG in SODIUM CHLORIDE 0.9% 200 ML IV PRN (21:59)
[2020-07-16] MEDS: ONDANSETRON HCL 4MG/2ML INJ IV PRN (22:00)
[2020-07-16] MEDS: ACETAMINOPHEN 325MG TABLET PO PRN (22:00)
[2020-07-17] VITALS (85 sets, daily range): BP systolic 102–136; BP diastolic 58–83
[2020-07-17] MEDS: IPRATROPIUM/ALBUTEROL 0.5-3(2.5)MG/3ML NEB HHN SCH ×6 (00:14→21:30)
[2020-07-17] MEDS: BLOOD SUGAR DIAGNOSTIC STRIP TEST SCH ×5 (02:00→18:01)
[2020-07-17] MEDS: INSULIN LISPRO 100 UNITS/ML SUBCUT SCH ×4 (02:00→20:00)
[2020-07-17] MEDS: METOCLOPRAMIDE HCL 10MG/2ML VIAL IV SCH ×3 (05:32→18:01)
[2020-07-17] MEDS: MIDAZOLAM HCL 100 MG in DEXT 5% WATER 100 ML IV PRN ×3 (05:34→23:23)
[2020-07-17 05:50] LABS: HEMATOCRIT. 37.2 % (42.0-52.0); HEMOGLOBIN. 12.4 g/dL (14.0-18.0); MEAN CORPUSCULAR HEMOGLOBIN 31.4 pg (28.0-32.0); MEAN CORPUSCULAR VOLUME 94.7 fL (80.0-94.0); MEAN PLATELET VOLUME 9.1 fl (7.4-10.4); PLATELET 148 x1000/uL (130-400); RED BLOOD CELL COUNT 3.93 mill/uL (4.7-6.1); RED CELL DISTRIBUTION WIDTH 13.7 % (11.6-14.6)
[2020-07-17 05:59] LABS: PHOSPHORUS 4.5 mg/dL (2.5-4.9)
[2020-07-17] MEDS ORDERED: FUROSEMIDE 40MG/4ML VIAL IVP NR (08:00)
[2020-07-17] MEDS: FAMOTIDINE 20MG/2ML VIAL IV SCH (08:50)
[2020-07-17] MEDS: ENOXAPARIN 100MG/ML SYR SUBCUT SCH ×2 (08:50→21:00)
[2020-07-17] MEDS: MIDODRINE HCL 5MG TABLET PO SCH ×3 (08:50→18:01)
[2020-07-17] MEDS: DEXAMETHASONE 4MG/ML 1ML VIAL IV SCH (08:50)
[2020-07-17] MEDS ORDERED: SODIUM POLYSTYRENE SULFONATE 15 G/60 ML BOT NG NR (09:00)
[2020-07-17 09:39] LABS: BG BASE EXCESS 4.2 mmol/L (-2.0-2.0); BG CARBOXYHEMOGLOBIN 0.8 % (0.5-1.5); BG DEOXYHEMOGLOBIN 7.2 % (0.0-5.0); BG FRACTION INSPIRED OXYGEN 100; BG HCO3 ACT 31.1 mmol/L (22.0-26.0); BG METHEMOGLOBIN 0.1 % (0.0-1.5); BG OXYGEN SATURATION 92.7 % (92.0-98.5); BG OXYHEMOGLOBIN 91.9 % (94.0-97.0); BG PCO2 56.8 mmHg (35.0-45.0); BG PH 7.356 (7.350-7.450); BG PO2 71.2 mmHg (75.0-100.0); BG SAMPLE SITE RIGHT RADIAL; BG VENT MODE VENT - AC
[2020-07-17] MEDS: INSULIN GLARGINE UD 100 UNITS/ML SYR SUBCUT SCH ×2 (11:57→22:00)
[2020-07-17 13:28] LABS: PLATELET ESTIMATE NORMAL
[2020-07-17] MEDS: FENTANYL CITRATE/PF 2,500 MCG in SODIUM CHLORIDE 0.9% 200 ML IV PRN ×2 (15:54→23:22)
[2020-07-18] VITALS (76 sets, daily range): BP systolic 103–140; BP diastolic 57–94
[2020-07-18] MEDS: IPRATROPIUM/ALBUTEROL 0.5-3(2.5)MG/3ML NEB HHN SCH ×6 (01:30→20:32)
[2020-07-18] MEDS: METOCLOPRAMIDE HCL 10MG/2ML VIAL IV SCH ×5 (01:46→23:49)
[2020-07-18] MEDS: INSULIN LISPRO 100 UNITS/ML SUBCUT SCH ×5 (01:47→23:41)
[2020-07-18 05:42] LABS: HEMATOCRIT. 38.5 % (42.0-52.0); HEMOGLOBIN. 12.7 g/dL (14.0-18.0); MEAN CORPUSCULAR HEMOGLOBIN 31.3 pg (28.0-32.0); MEAN CORPUSCULAR VOLUME 95.2 fL (80.0-94.0); MEAN PLATELET VOLUME 9.1 fl (7.4-10.4); PLATELET 151 x1000/uL (130-400); RED BLOOD CELL COUNT 4.05 mill/uL (4.7-6.1); RED CELL DISTRIBUTION WIDTH 13.8 % (11.6-14.6)
[2020-07-18 05:57] LABS: PHOSPHORUS 4.9 mg/dL (2.5-4.9)
[2020-07-18] MEDS: BLOOD SUGAR DIAGNOSTIC STRIP TEST SCH ×5 (06:31→23:27)
[2020-07-18] MEDS: MIDAZOLAM HCL 100 MG in DEXT 5% WATER 100 ML IV PRN ×3 (06:32→21:59)
[2020-07-18 07:51] LABS: PLATELET ESTIMATE NORMAL
[2020-07-18] MEDS: DEXAMETHASONE 10 MG/ML VIAL IV SCH (09:25)
[2020-07-18] MEDS: FAMOTIDINE 20MG/2ML VIAL IV SCH (09:25)
[2020-07-18] MEDS: MIDODRINE HCL 5MG TABLET PO SCH ×2 (09:25→12:26)
[2020-07-18] MEDS: ENOXAPARIN 100MG/ML SYR SUBCUT SCH ×2 (09:26→21:01)
[2020-07-18 09:46] LABS: BG BASE EXCESS 7.8 mmol/L (-2.0-2.0); BG CARBOXYHEMOGLOBIN 0.6 % (0.5-1.5); BG DEOXYHEMOGLOBIN 7.6 % (0.0-5.0); BG FRACTION INSPIRED OXYGEN 100; BG HCO3 ACT 36.3 mmol/L (22.0-26.0); BG METHEMOGLOBIN 0.3 % (0.0-1.5); BG OXYGEN SATURATION 92.3 % (92.0-98.5); BG OXYHEMOGLOBIN 91.5 % (94.0-97.0); BG PCO2 71.1 mmHg (35.0-45.0); BG PH 7.326 (7.350-7.450); BG PO2 72.3 mmHg (75.0-100.0); BG SAMPLE SITE RIGHT RADIAL; BG TOTAL HEMOGLOBIN 12.9 g/dL (12.0-18.0); BG TOTAL RESPIRATORY RATE 18 b/min; BG VENT MODE VENT - AC
[2020-07-18] MEDS: INSULIN GLARGINE UD 100 UNITS/ML SYR SUBCUT SCH ×2 (11:36→21:50)
[2020-07-18] MEDS ORDERED: SODIUM POLYSTYRENE SULFONATE 15 G/60 ML BOT PO NR (12:00)
[2020-07-18] MEDS ORDERED: SODIUM BICARBONATE 8.4% 1 MEQ/ML 50ML SYR IV NR (12:00)
[2020-07-18 13:43] LABS: BG BASE EXCESS 7.3 mmol/L (-2.0-2.0); BG CARBOXYHEMOGLOBIN 0.4 % (0.5-1.5); BG DEOXYHEMOGLOBIN 6.6 % (0.0-5.0); BG HCO3 ACT 34.7 mmol/L (22.0-26.0); BG METHEMOGLOBIN 0.2 % (0.0-1.5); BG OXYGEN SATURATION 93.4 % (92.0-98.5); BG OXYHEMOGLOBIN 92.8 % (94.0-97.0); BG PCO2 62.5 mmHg (35.0-45.0); BG PH 7.362 (7.350-7.450); BG SAMPLE SITE LEFT RADIAL; BG TOTAL RESPIRATORY RATE 22 b/min; BG VENT MODE VENT - AC
[2020-07-18] MEDS: FENTANYL CITRATE/PF 2,500 MCG in SODIUM CHLORIDE 0.9% 200 ML IV PRN ×3 (14:24→22:08)
[2020-07-18 15:46] LABS: BG BASE EXCESS 9.4 mmol/L (-2.0-2.0); BG CARBOXYHEMOGLOBIN 0.7 % (0.5-1.5); BG DEOXYHEMOGLOBIN 5.9 % (0.0-5.0); BG HCO3 ACT 37.1 mmol/L (22.0-26.0); BG METHEMOGLOBIN 0.2 % (0.0-1.5); BG OXYHEMOGLOBIN 93.2 % (94.0-97.0); BG PH 7.368 (7.350-7.450); BG PO2 77.4 mmHg (75.0-100.0)
[2020-07-19] VITALS (45 sets, daily range): BP systolic 89–132; BP diastolic 53–92
[2020-07-19] MEDS: IPRATROPIUM/ALBUTEROL 0.5-3(2.5)MG/3ML NEB HHN SCH ×5 (00:26→20:10)
[2020-07-19] MEDS ORDERED: INSULIN LISPRO 100 UNITS/ML SUBCUT SCH (02:00)
[2020-07-19] MEDS: METOCLOPRAMIDE HCL 10MG/2ML VIAL IV SCH ×4 (05:47→23:40)
[2020-07-19] MEDS: INSULIN LISPRO 100 UNITS/ML SUBCUT SCH ×4 (06:00→23:59)
[2020-07-19 06:08] LABS: HEMATOCRIT. 40.6 % (42.0-52.0); HEMOGLOBIN. 13.3 g/dL (14.0-18.0); MEAN CORPUSCULAR HEMOGLOBIN 31.1 pg (28.0-32.0); MEAN CORPUSCULAR VOLUME 94.7 fL (80.0-94.0); MEAN PLATELET VOLUME 9.1 fl (7.4-10.4); PLATELET 158 x1000/uL (130-400); RED BLOOD CELL COUNT 4.28 mill/uL (4.7-6.1); RED CELL DISTRIBUTION WIDTH 13.7 % (11.6-14.6)
[2020-07-19] MEDS: DILTIAZEM HCL 125 MG in DEXT 5% WATER 100 ML IV PRN ×2 (06:12→14:49)
[2020-07-19] MEDS: BLOOD SUGAR DIAGNOSTIC STRIP TEST SCH ×4 (06:13→23:53)
[2020-07-19] MEDS: MIDAZOLAM HCL 100 MG in DEXT 5% WATER 100 ML IV PRN ×2 (06:15→13:20)
[2020-07-19] MEDS: FENTANYL CITRATE/PF 2,500 MCG in SODIUM CHLORIDE 0.9% 200 ML IV PRN ×2 (06:22→13:27)
[2020-07-19 06:26] LABS: PHOSPHORUS 4.3 mg/dL (2.5-4.9)
[2020-07-19 07:34] LABS: PLATELET ESTIMATE NORMAL
[2020-07-19 08:58] LABS: BG BASE EXCESS 11.4 mmol/L (-2.0-2.0); BG CARBOXYHEMOGLOBIN 0.6 % (0.5-1.5); BG DEOXYHEMOGLOBIN 13.2 % (0.0-5.0); BG FRACTION INSPIRED OXYGEN 100; BG HCO3 ACT 39.2 mmol/L (22.0-26.0); BG METHEMOGLOBIN 0.3 % (0.0-1.5); BG OXYGEN SATURATION 86.7 % (92.0-98.5); BG OXYHEMOGLOBIN 85.9 % (94.0-97.0); BG PCO2 66.2 mmHg (35.0-45.0); BG PO2 53.5 mmHg (75.0-100.0); BG SAMPLE SITE RIGHT RADIAL; BG TOTAL HEMOGLOBIN 13.8 g/dL (12.0-18.0); BG VENT MODE PRVC
[2020-07-19] MEDS: FAMOTIDINE 20MG/2ML VIAL IV SCH (09:37)
[2020-07-19] MEDS: ENOXAPARIN 100MG/ML SYR SUBCUT SCH ×2 (09:37→20:58)
[2020-07-19] MEDS: INSULIN GLARGINE UD 100 UNITS/ML SYR SUBCUT SCH ×2 (09:37→22:11)
[2020-07-19] MEDS: DEXTROSE 5% WATER 1,000 ML IV SCH (11:31)
[2020-07-19] MEDS: DEXAMETHASONE 10 MG/ML VIAL IV SCH (11:31)
[2020-07-19 15:58] LABS: BG BASE EXCESS 9.5 mmol/L (-2.0-2.0); BG DEOXYHEMOGLOBIN 29.6 % (0.0-5.0); BG FRACTION INSPIRED OXYGEN 100; BG HCO3 ACT 37.3 mmol/L (22.0-26.0); BG METHEMOGLOBIN 0.1 % (0.0-1.5); BG OXYGEN SATURATION 70.1 % (92.0-98.5); BG OXYHEMOGLOBIN 69.3 % (94.0-97.0); BG PCO2 64.3 mmHg (35.0-45.0); BG PH 7.381 (7.350-7.450); BG PO2 40.5 mmHg (75.0-100.0); BG SAMPLE SITE LEFT RADIAL; BG TOTAL HEMOGLOBIN 14.3 g/dL (12.0-18.0); BG VENT MODE PRVC
[2020-07-19] MEDS: PHENYLEPHRINE 50 MG in DEXT 5% WATER 245 ML IV PRN (23:35)
[2020-07-20] VITALS (82 sets, daily range): BP systolic 81–135; BP diastolic 54–90
[2020-07-20] MEDS: IPRATROPIUM/ALBUTEROL 0.5-3(2.5)MG/3ML NEB HHN SCH ×6 (00:03→20:24)
[2020-07-20] MEDS: DEXTROSE 5% WATER 1,000 ML IV SCH ×2 (02:00→13:51)
[2020-07-20] MEDS: MIDAZOLAM HCL 100 MG in DEXT 5% WATER 80 ML IV PRN ×4 (02:08→22:07)
[2020-07-20] MEDS: DILTIAZEM HCL 125 MG in DEXT 5% WATER 100 ML IV PRN (04:41)
[2020-07-20 05:38] LABS: HEMATOCRIT. 38.6 % (42.0-52.0); HEMOGLOBIN. 12.5 g/dL (14.0-18.0); MEAN CORPUSCULAR VOLUME 95.9 fL (80.0-94.0); MEAN PLATELET VOLUME 9.8 fl (7.4-10.4); PLATELET 175 x1000/uL (130-400); RED BLOOD CELL COUNT 4.03 mill/uL (4.7-6.1); RED CELL DISTRIBUTION WIDTH 13.7 % (11.6-14.6)
[2020-07-20 05:53] LABS: PHOSPHORUS 4.3 mg/dL (2.5-4.9)
[2020-07-20] MEDS: BLOOD SUGAR DIAGNOSTIC STRIP TEST SCH ×3 (06:00→17:39)
[2020-07-20] MEDS: INSULIN LISPRO 100 UNITS/ML SUBCUT SCH ×3 (06:00→17:40)
[2020-07-20] MEDS: METOCLOPRAMIDE HCL 10MG/2ML VIAL IV SCH ×3 (06:33→17:39)
[2020-07-20] MEDS: FAMOTIDINE 20MG/2ML VIAL IV SCH (08:43)
[2020-07-20] MEDS: DEXAMETHASONE 10 MG/ML VIAL IV SCH (08:43)
[2020-07-20] MEDS: FENTANYL CITRATE/PF 2,500 MCG in SODIUM CHLORIDE 0.9% 200 ML IV PRN ×2 (08:45→17:41)
[2020-07-20] MEDS: ENOXAPARIN 100MG/ML SYR SUBCUT SCH ×2 (08:57→21:37)
[2020-07-20] MEDS ORDERED: PIPERACILLIN/TAZOBACTAM 2.25 G in DEXTROSE 5% WATER 50 ML IV SCH (10:15)
[2020-07-20 10:56] LABS: BG BASE EXCESS 8.9 mmol/L (-2.0-2.0); BG CARBOXYHEMOGLOBIN 1.2 % (0.5-1.5); BG DEOXYHEMOGLOBIN 17.8 % (0.0-5.0); BG FRACTION INSPIRED OXYGEN 100; BG HCO3 ACT 36.5 mmol/L (22.0-26.0); BG METHEMOGLOBIN 0.1 % (0.0-1.5); BG OXYHEMOGLOBIN 80.9 % (94.0-97.0); BG PCO2 64.1 mmHg (35.0-45.0); BG PH 7.373 (7.350-7.450); BG PO2 52.8 mmHg (75.0-100.0); BG SAMPLE SITE LEFT RADIAL; BG TOTAL HEMOGLOBIN 13.3 g/dL (12.0-18.0); BG TOTAL RESPIRATORY RATE 22 b/min; BG VENT MODE VENT- PRVC
[2020-07-20 11:03] LABS: PLATELET ESTIMATE NORMAL
[2020-07-20] MEDS ORDERED: SODIUM POLYSTYRENE SULFONATE 15 G/60 ML BOT NG ONE (11:30)
[2020-07-20] MEDS: INSULIN GLARGINE UD 100 UNITS/ML SYR SUBCUT SCH ×2 (12:07→21:39)
[2020-07-20 12:12] LABS: HEMATOCRIT. 42.7 % (42.0-52.0); HEMOGLOBIN. 13.6 g/dL (14.0-18.0); MEAN CORPUSCULAR HEMOGLOBIN 31.1 pg (28.0-32.0); MEAN CORPUSCULAR VOLUME 97.6 fL (80.0-94.0); MEAN PLATELET VOLUME 9.9 fl (7.4-10.4); PLATELET 137 x1000/uL (130-400); RED BLOOD CELL COUNT 4.37 mill/uL (4.7-6.1); RED CELL DISTRIBUTION WIDTH 14.1 % (11.6-14.6)
[2020-07-20] MEDS: MIDODRINE HCL 5MG TABLET PO PRN ×2 (12:15→17:39)
[2020-07-20] MEDS ORDERED: VANCOMYCIN 2,000 MG in DEXT 5% WATER 500 ML IV NR (12:30)
[2020-07-20] MEDS ORDERED: SODIUM POLYSTYRENE SULFONATE 15 G/60 ML BOT PO NR (12:30)
[2020-07-20 13:20] LABS: PLATELET ESTIMATE NORMAL
[2020-07-20] MEDS: PIPERACILLIN/TAZOBACTAM 3.375 G in DEXT 5% WATER 100 ML IV SCH ×2 (13:50→17:39)
[2020-07-20 17:29] LABS: CLARITY URINE CLEAR (CLEAR); COLOR URINE YELLOW (YELLOW); KETONES URINE NEGATIVE (NEGATIVE); LEUKOCYTE ESTERASE URINE NEGATIVE (NEGATIVE); NITRITE URINE NEGATIVE (NEGATIVE); OCCULT BLOOD URINE TRACE (NEGATIVE); PROTEIN URINE NEGATIVE (NEGATIVE); SPECIFIC GRAVITY URINE 1.016 (1.005-1.030)
[2020-07-20] MEDS: PHENYLEPHRINE 50 MG in DEXT 5% WATER 245 ML IV PRN (19:04)
[2020-07-20] MEDS ORDERED: LACTULOSE 20G/30ML UDC PO SCH (19:30)
[2020-07-21] VITALS (96 sets, daily range): BP systolic 95–146; BP diastolic 52–95
[2020-07-21] MEDS: IPRATROPIUM/ALBUTEROL 0.5-3(2.5)MG/3ML NEB HHN SCH ×6 (00:31→20:32)
[2020-07-21] MEDS: FENTANYL CITRATE/PF 2,500 MCG in SODIUM CHLORIDE 0.9% 200 ML IV PRN ×4 (00:35→23:57)
[2020-07-21] MEDS: PIPERACILLIN/TAZOBACTAM 3.375 G in DEXT 5% WATER 100 ML IV SCH ×5 (00:56→23:52)
[2020-07-21] MEDS: METOCLOPRAMIDE HCL 10MG/2ML VIAL IV SCH ×5 (00:56→23:52)
[2020-07-21] MEDS: BLOOD SUGAR DIAGNOSTIC STRIP TEST SCH ×5 (00:57→23:54)
[2020-07-21] MEDS: INSULIN LISPRO 100 UNITS/ML SUBCUT SCH ×5 (00:57→23:54)
[2020-07-21] MEDS: DEXTROSE 5% WATER 1,000 ML IV SCH ×2 (03:45→16:37)
[2020-07-21] MEDS: MIDAZOLAM HCL 100 MG in DEXT 5% WATER 80 ML IV PRN ×3 (05:31→20:33)
[2020-07-21 05:58] LABS: HEMATOCRIT. 39.9 % (42.0-52.0); HEMOGLOBIN. 12.6 g/dL (14.0-18.0); MEAN CORPUSCULAR HEMOGLOBIN 30.7 pg (28.0-32.0); MEAN CORPUSCULAR VOLUME 97.2 fL (80.0-94.0); MEAN PLATELET VOLUME 10.3 fl (7.4-10.4); PLATELET 152 x1000/uL (130-400); RED BLOOD CELL COUNT 4.11 mill/uL (4.7-6.1)
[2020-07-21 06:07] LABS: PHOSPHORUS 3.8 mg/dL (2.5-4.9)
[2020-07-21] MEDS: FAMOTIDINE 20MG/2ML VIAL IV SCH (08:39)
[2020-07-21] MEDS: DEXAMETHASONE 10 MG/ML VIAL IV SCH (08:39)
[2020-07-21] MEDS: MIDODRINE HCL 5MG TABLET PO PRN (08:40)
[2020-07-21 09:00] LABS: BG BASE EXCESS 6.3 mmol/L (-2.0-2.0); BG CARBOXYHEMOGLOBIN 0.7 % (0.5-1.5); BG DEOXYHEMOGLOBIN 14.4 % (0.0-5.0); BG HCO3 ACT 33.7 mmol/L (22.0-26.0); BG METHEMOGLOBIN 0.1 % (0.0-1.5); BG OXYGEN SATURATION 85.5 % (92.0-98.5); BG OXYHEMOGLOBIN 84.8 % (94.0-97.0); BG PH 7.353 (7.350-7.450); BG PO2 55.7 mmHg (75.0-100.0); BG SAMPLE SITE RIGHT RADIAL; BG TOTAL HEMOGLOBIN 12.6 g/dL (12.0-18.0); BG VENT MODE VENT - APRV
[2020-07-21] MEDS: VANCOMYCIN 1 G PREMIX 200 ML IV SCH (09:02)
[2020-07-21] MEDS: ENOXAPARIN 100MG/ML SYR SUBCUT SCH ×2 (09:03→20:35)
[2020-07-21] MEDS: INSULIN GLARGINE UD 100 UNITS/ML SYR SUBCUT SCH ×2 (09:34→21:57)
[2020-07-21 10:23] LABS: PLATELET ESTIMATE NORMAL
[2020-07-21] MEDS: MIDODRINE HCL 5MG TABLET PO SCH ×2 (12:55→17:13)
[2020-07-21] MEDS ORDERED: VANCOMYCIN 1 G PREMIX 200 ML IV SCH (13:00)
[2020-07-21] MEDS: PHENYLEPHRINE 50 MG in DEXT 5% WATER 245 ML IV PRN (17:14)
[2020-07-22] VITALS (83 sets, daily range): BP systolic 82–138; BP diastolic 31–89
[2020-07-22] MEDS: IPRATROPIUM/ALBUTEROL 0.5-3(2.5)MG/3ML NEB HHN SCH ×6 (00:42→20:49)
[2020-07-22] MEDS: MIDAZOLAM HCL 100 MG in DEXT 5% WATER 80 ML IV PRN ×3 (04:12→19:35)
[2020-07-22] MEDS: DILTIAZEM HCL 125 MG in DEXT 5% WATER 100 ML IV PRN ×3 (04:12→19:33)
[2020-07-22] MEDS: VANCOMYCIN 1 G PREMIX 200 ML IV SCH (05:10)
[2020-07-22] MEDS: DEXTROSE 5% WATER 1,000 ML IV SCH ×2 (05:12→18:39)
[2020-07-22] MEDS: METOCLOPRAMIDE HCL 10MG/2ML VIAL IV SCH ×3 (05:37→18:38)
[2020-07-22] MEDS: PIPERACILLIN/TAZOBACTAM 3.375 G in DEXT 5% WATER 100 ML IV SCH ×4 (05:37→23:31)
[2020-07-22] MEDS: BLOOD SUGAR DIAGNOSTIC STRIP TEST SCH ×4 (05:38→23:53)
[2020-07-22] MEDS: INSULIN LISPRO 100 UNITS/ML SUBCUT SCH ×4 (05:38→23:55)
[2020-07-22 05:45] LABS: HEMATOCRIT. 37.8 % (42.0-52.0); HEMOGLOBIN. 12.1 g/dL (14.0-18.0); MEAN CORPUSCULAR HEMOGLOBIN 31.4 pg (28.0-32.0); MEAN CORPUSCULAR VOLUME 97.6 fL (80.0-94.0); MEAN PLATELET VOLUME 10.7 fl (7.4-10.4); PLATELET 94 x1000/uL (130-400); RED BLOOD CELL COUNT 3.87 mill/uL (4.7-6.1)
[2020-07-22 05:58] LABS: CHLORIDE 115 mEq/L (98-107)
[2020-07-22 06:04] LABS: PHOSPHORUS 3.3 mg/dL (2.5-4.9)
[2020-07-22 07:25] LABS: PLATELET ESTIMATE NORMAL
[2020-07-22] MEDS: DEXAMETHASONE 10 MG/ML VIAL IV SCH (08:21)
[2020-07-22] MEDS: FENTANYL CITRATE/PF 2,500 MCG in SODIUM CHLORIDE 0.9% 200 ML IV PRN ×3 (08:21→23:50)
[2020-07-22] MEDS: FAMOTIDINE 20MG/2ML VIAL IV SCH (08:21)
[2020-07-22] MEDS: MIDODRINE HCL 5MG TABLET PO SCH ×3 (08:23→18:38)
[2020-07-22 09:38] LABS: BG BASE EXCESS 6.7 mmol/L (-2.0-2.0); BG CARBOXYHEMOGLOBIN 0.3 % (0.5-1.5); BG DEOXYHEMOGLOBIN 9.2 % (0.0-5.0); BG FRACTION INSPIRED OXYGEN 100; BG HCO3 ACT 33.2 mmol/L (22.0-26.0); BG OXYGEN SATURATION 90.8 % (92.0-98.5); BG OXYHEMOGLOBIN 90.5 % (94.0-97.0); BG PCO2 57.3 mmHg (35.0-45.0); BG PH 7.381 (7.350-7.450); BG SAMPLE SITE RIGHT RADIAL; BG TOTAL HEMOGLOBIN 11.4 g/dL (12.0-18.0); BG VENT MODE PRVC
[2020-07-22] MEDS: INSULIN GLARGINE UD 100 UNITS/ML SYR SUBCUT SCH ×2 (10:00→21:54)
[2020-07-22] MEDS: ENOXAPARIN 100MG/ML SYR SUBCUT SCH ×2 (11:58→21:52)
[2020-07-23] VITALS (84 sets, daily range): BP systolic 94–136; BP diastolic 53–97
[2020-07-23] MEDS: IPRATROPIUM/ALBUTEROL 0.5-3(2.5)MG/3ML NEB HHN SCH ×6 (00:42→20:50)
[2020-07-23] MEDS: METOCLOPRAMIDE HCL 10MG/2ML VIAL IV SCH ×4 (00:50→17:24)
[2020-07-23] MEDS: VANCOMYCIN 750 MG PREMIX 150 ML IV SCH ×2 (00:57→18:30)
[2020-07-23] MEDS: MIDAZOLAM HCL 100 MG in DEXT 5% WATER 80 ML IV PRN ×3 (04:19→17:25)
[2020-07-23] MEDS: DILTIAZEM HCL 125 MG in DEXT 5% WATER 100 ML IV PRN (04:48)
[2020-07-23] MEDS: PIPERACILLIN/TAZOBACTAM 3.375 G in DEXT 5% WATER 100 ML IV SCH ×3 (05:40→17:24)
[2020-07-23 06:01] LABS: HEMATOCRIT. 36.6 % (42.0-52.0); HEMOGLOBIN. 11.9 g/dL (14.0-18.0); MEAN CORPUSCULAR HEMOGLOBIN 31.2 pg (28.0-32.0); MEAN CORPUSCULAR VOLUME 96.3 fL (80.0-94.0); MEAN PLATELET VOLUME 10.7 fl (7.4-10.4); PLATELET 84 x1000/uL (130-400); RED CELL DISTRIBUTION WIDTH 13.6 % (11.6-14.6)
[2020-07-23] MEDS: BLOOD SUGAR DIAGNOSTIC STRIP TEST SCH ×3 (06:11→17:24)
[2020-07-23 06:13] LABS: CHLORIDE 114 mEq/L (98-107)
[2020-07-23] MEDS: INSULIN LISPRO 100 UNITS/ML SUBCUT SCH ×3 (06:13→17:46)
[2020-07-23] MEDS: DEXAMETHASONE 10 MG/ML VIAL IV SCH (09:23)
[2020-07-23] MEDS: FAMOTIDINE 20MG/2ML VIAL IV SCH (09:23)
[2020-07-23] MEDS: DEXTROSE 5% WATER 1,000 ML IV SCH ×2 (09:23→23:37)
[2020-07-23] MEDS: MIDODRINE HCL 5MG TABLET PO SCH ×3 (09:24→17:24)
[2020-07-23 10:00] LABS: PLATELET ESTIMATE DECREASED
[2020-07-23] MEDS: ENOXAPARIN 100MG/ML SYR SUBCUT SCH ×2 (10:04→21:51)
[2020-07-23] MEDS: INSULIN GLARGINE UD 100 UNITS/ML SYR SUBCUT SCH ×2 (10:05→21:52)
[2020-07-23 10:39] LABS: BG BASE EXCESS -3.2 mmol/L (-2.0-2.0); BG CARBOXYHEMOGLOBIN 0.3 % (0.5-1.5); BG DEOXYHEMOGLOBIN 7.9 % (0.0-5.0); BG HCO3 ACT 21.5 mmol/L (22.0-26.0); BG METHEMOGLOBIN 0.1 % (0.0-1.5); BG OXYGEN SATURATION 92.1 % (92.0-98.5); BG OXYHEMOGLOBIN 91.7 % (94.0-97.0); BG PCO2 37.3 mmHg (35.0-45.0); BG PH 7.378 (7.350-7.450); BG PO2 74.2 mmHg (75.0-100.0); BG SAMPLE SITE RIGHT RADIAL; BG TOTAL HEMOGLOBIN 12.3 g/dL (12.0-18.0); BG VENT MODE VENT - APRV
[2020-07-23] MEDS: FENTANYL CITRATE/PF 2,500 MCG in SODIUM CHLORIDE 0.9% 200 ML IV PRN ×3 (10:45→21:26)
[2020-07-23 22:02] LABS: BG BASE EXCESS 2.3 mmol/L (-2.0-2.0); BG DEOXYHEMOGLOBIN 54.7 % (0.0-5.0); BG FRACTION INSPIRED OXYGEN 100; BG HCO3 ACT 31.7 mmol/L (22.0-26.0); BG METHEMOGLOBIN 0.3 % (0.0-1.5); BG OXYGEN SATURATION 44.6 % (92.0-98.5); BG PO2 30.8 mmHg (75.0-100.0); BG SAMPLE SITE RIGHT RADIAL; BG TOTAL HEMOGLOBIN 13.7 g/dL (12.0-18.0); BG VENT MODE VENT - APRV
[2020-07-24] VITALS (86 sets, daily range): BP systolic 82–146; BP diastolic 41–88
[2020-07-24] MEDS: IPRATROPIUM/ALBUTEROL 0.5-3(2.5)MG/3ML NEB HHN SCH ×6 (00:20→20:16)
[2020-07-24] MEDS: PIPERACILLIN/TAZOBACTAM 3.375 G in DEXT 5% WATER 100 ML IV SCH ×5 (00:26→23:38)
[2020-07-24] MEDS: BLOOD SUGAR DIAGNOSTIC STRIP TEST SCH ×5 (00:27→23:47)
[2020-07-24] MEDS: METOCLOPRAMIDE HCL 10MG/2ML VIAL IV SCH ×5 (00:27→23:30)
[2020-07-24] MEDS: INSULIN LISPRO 100 UNITS/ML SUBCUT SCH ×5 (00:43→23:53)
[2020-07-24] MEDS: DILTIAZEM HCL 125 MG in DEXT 5% WATER 100 ML IV PRN ×2 (00:44→10:36)
[2020-07-24] MEDS: MIDAZOLAM HCL 100 MG in DEXT 5% WATER 80 ML IV PRN ×4 (01:34→23:40)
[2020-07-24 06:02] LABS: HEMATOCRIT. 36.4 % (42.0-52.0); HEMOGLOBIN. 11.5 g/dL (14.0-18.0); MEAN CORPUSCULAR HEMOGLOBIN 30.8 pg (28.0-32.0); MEAN CORPUSCULAR VOLUME 97.3 fL (80.0-94.0); PLATELET 90 x1000/uL (130-400); RED BLOOD CELL COUNT 3.74 mill/uL (4.7-6.1); RED CELL DISTRIBUTION WIDTH 13.8 % (11.6-14.6)
[2020-07-24] MEDS: FENTANYL CITRATE/PF 2,500 MCG in SODIUM CHLORIDE 0.9% 200 ML IV PRN ×3 (07:20→22:59)
[2020-07-24 08:10] LABS: PLATELET ESTIMATE DECREASED
[2020-07-24] MEDS: DEXAMETHASONE 4MG/ML 1ML VIAL IV SCH (09:04)
[2020-07-24] MEDS: MIDODRINE HCL 5MG TABLET PO SCH ×3 (09:04→17:21)
[2020-07-24] MEDS: FAMOTIDINE 20MG/2ML VIAL IV SCH (09:04)
[2020-07-24] MEDS: ENOXAPARIN 100MG/ML SYR SUBCUT SCH ×2 (09:06→21:27)
[2020-07-24 09:50] LABS: BG BASE EXCESS 5.6 mmol/L (-2.0-2.0); BG CARBOXYHEMOGLOBIN 1.6 % (0.5-1.5); BG DEOXYHEMOGLOBIN 12.1 % (0.0-5.0); BG FRACTION INSPIRED OXYGEN 100; BG OXYGEN SATURATION 87.7 % (92.0-98.5); BG OXYHEMOGLOBIN 86.3 % (94.0-97.0); BG PCO2 62.6 mmHg (35.0-45.0); BG PO2 59.9 mmHg (75.0-100.0); BG SAMPLE SITE ALINE; BG VENT MODE VENT - PRVC
[2020-07-24] MEDS: INSULIN GLARGINE UD 100 UNITS/ML SYR SUBCUT SCH ×2 (11:25→21:53)
[2020-07-24] MEDS: DEXTROSE 5% WATER 1,000 ML IV SCH (11:26)
[2020-07-24] MEDS: PROPOFOL 10MG/ML 100ML 100 ML IV PRN ×2 (13:21→20:29)
[2020-07-24] MEDS: VANCOMYCIN 750 MG PREMIX 150 ML IV SCH (13:51)
[2020-07-25] VITALS (37 sets, daily range): BP systolic 106–141; BP diastolic 56–90
[2020-07-25] MEDS: VANCOMYCIN 750 MG PREMIX 150 ML IV SCH ×2 (00:24→12:47)
[2020-07-25] MEDS: IPRATROPIUM/ALBUTEROL 0.5-3(2.5)MG/3ML NEB HHN SCH ×6 (00:29→20:37)
[2020-07-25] MEDS: DEXTROSE 5% WATER 1,000 ML IV SCH ×2 (05:30→13:40)
[2020-07-25] MEDS: BLOOD SUGAR DIAGNOSTIC STRIP TEST SCH ×4 (05:37→23:44)
[2020-07-25] MEDS: INSULIN LISPRO 100 UNITS/ML SUBCUT SCH ×4 (05:38→23:48)
[2020-07-25] MEDS: PIPERACILLIN/TAZOBACTAM 3.375 G in DEXT 5% WATER 100 ML IV SCH (05:39)
[2020-07-25 05:49] LABS: HEMATOCRIT. 34.7 % (42.0-52.0); HEMOGLOBIN. 11.2 g/dL (14.0-18.0); MEAN CORPUSCULAR HEMOGLOBIN 30.9 pg (28.0-32.0); MEAN CORPUSCULAR VOLUME 96.1 fL (80.0-94.0); MEAN PLATELET VOLUME 11.3 fl (7.4-10.4); PLATELET 59 x1000/uL (130-400); RED BLOOD CELL COUNT 3.61 mill/uL (4.7-6.1); RED CELL DISTRIBUTION WIDTH 13.6 % (11.6-14.6)
[2020-07-25 06:13] LABS: PHOSPHORUS 4.3 mg/dL (2.5-4.9)
[2020-07-25] MEDS: FENTANYL CITRATE/PF 2,500 MCG in SODIUM CHLORIDE 0.9% 200 ML IV PRN ×2 (06:39→14:03)
[2020-07-25] MEDS: MIDAZOLAM HCL 100 MG in DEXT 5% WATER 80 ML IV PRN ×3 (06:52→22:03)
[2020-07-25] MEDS: PROPOFOL 10MG/ML 100ML 100 ML IV PRN ×2 (06:57→18:05)
[2020-07-25] MEDS: METOCLOPRAMIDE HCL 10MG/2ML VIAL IV SCH ×4 (06:59→23:44)
[2020-07-25 09:19] LABS: BG BASE EXCESS 3.4 mmol/L (-2.0-2.0); BG CARBOXYHEMOGLOBIN 0.9 % (0.5-1.5); BG DEOXYHEMOGLOBIN 7.9 % (0.0-5.0); BG FRACTION INSPIRED OXYGEN 100; BG OXYHEMOGLOBIN 91.2 % (94.0-97.0); BG PCO2 63.4 mmHg (35.0-45.0); BG PH 7.307 (7.350-7.450); BG PO2 72.3 mmHg (75.0-100.0); BG SAMPLE SITE RIGHT RADIAL; BG TOTAL HEMOGLOBIN 11.2 g/dL (12.0-18.0); BG VENT MODE VENT - PRVC
[2020-07-25] MEDS: FAMOTIDINE 20MG/2ML VIAL IV SCH (09:25)
[2020-07-25] MEDS: DEXAMETHASONE 4MG/ML 1ML VIAL IV SCH (09:25)
[2020-07-25] MEDS: MIDODRINE HCL 5MG TABLET PO SCH ×3 (09:26→18:03)
[2020-07-25] MEDS: INSULIN GLARGINE UD 100 UNITS/ML SYR SUBCUT SCH ×2 (09:26→22:00)
[2020-07-25] MEDS: ENOXAPARIN 100MG/ML SYR SUBCUT SCH ×2 (09:27→10:14)
[2020-07-25 09:55] LABS: PLATELET ESTIMATE DECREAS
[2020-07-25] MEDS: DEXTROSE 50% WATER 50ML SYRINGE IV PRN (22:26)
[2020-07-26] VITALS (96 sets, daily range): BP systolic 83–146; BP diastolic 45–92
[2020-07-26] MEDS: IPRATROPIUM/ALBUTEROL 0.5-3(2.5)MG/3ML NEB HHN SCH ×6 (00:15→21:22)
[2020-07-26] MEDS: DEXTROSE 5% WATER 1,000 ML IV SCH ×3 (00:30→23:17)
[2020-07-26] MEDS: PROPOFOL 10MG/ML 100ML 100 ML IV PRN ×4 (00:43→21:34)
[2020-07-26] MEDS: MIDAZOLAM HCL 100 MG in DEXT 5% WATER 80 ML IV PRN ×3 (05:20→21:34)
[2020-07-26 05:23] LABS: HEMATOCRIT. 35.5 % (42.0-52.0); HEMOGLOBIN. 11.8 g/dL (14.0-18.0); MEAN CORPUSCULAR HEMOGLOBIN 31.4 pg (28.0-32.0); MEAN CORPUSCULAR VOLUME 94.3 fL (80.0-94.0); MEAN PLATELET VOLUME 11.2 fl (7.4-10.4); PLATELET 59 x1000/uL (130-400); RED BLOOD CELL COUNT 3.77 mill/uL (4.7-6.1); RED CELL DISTRIBUTION WIDTH 13.3 % (11.6-14.6)
[2020-07-26 05:30] LABS: CHLORIDE 110 mEq/L (98-107)
[2020-07-26 05:36] LABS: PHOSPHORUS 3.3 mg/dL (2.5-4.9)
[2020-07-26] MEDS: INSULIN LISPRO 100 UNITS/ML SUBCUT SCH ×4 (06:00→23:33)
[2020-07-26] MEDS: BLOOD SUGAR DIAGNOSTIC STRIP TEST SCH ×4 (06:10→23:33)
[2020-07-26] MEDS: METOCLOPRAMIDE HCL 10MG/2ML VIAL IV SCH ×4 (06:15→23:17)
[2020-07-26] MEDS: FENTANYL CITRATE/PF 2,500 MCG in SODIUM CHLORIDE 0.9% 200 ML IV PRN ×3 (06:20→21:33)
[2020-07-26 07:47] LABS: PLATELET ESTIMATE DECREASED
[2020-07-26 08:47] LABS: BG BASE EXCESS 6.3 mmol/L (-2.0-2.0); BG CARBOXYHEMOGLOBIN 1.3 % (0.5-1.5); BG DEOXYHEMOGLOBIN 7.1 % (0.0-5.0); BG HCO3 ACT 32.5 mmol/L (22.0-26.0); BG METHEMOGLOBIN 0.3 % (0.0-1.5); BG OXYGEN SATURATION 92.8 % (92.0-98.5); BG OXYHEMOGLOBIN 91.3 % (94.0-97.0); BG PO2 70.6 mmHg (75.0-100.0); BG SAMPLE SITE RIGHT RADIAL; BG TOTAL HEMOGLOBIN 11.6 g/dL (12.0-18.0); BG VENT MODE VENT - APRV
[2020-07-26] MEDS: FAMOTIDINE 20MG/2ML VIAL IV SCH (09:11)
[2020-07-26] MEDS: DEXAMETHASONE 4MG/ML 1ML VIAL IV SCH (09:11)
[2020-07-26] MEDS: INSULIN GLARGINE UD 100 UNITS/ML SYR SUBCUT SCH (09:41)
[2020-07-26] MEDS: MIDODRINE HCL 5MG TABLET PO SCH ×3 (09:41→17:25)
[2020-07-26] MEDS: DEXTROSE 50% WATER 50ML SYRINGE IV PRN (09:42)
[2020-07-26] MEDS ORDERED: MAGNESIUM 1 G PREMIX 100 ML IV SCH (10:00)
[2020-07-26] MEDS: METHYLPREDNISOLONE SOD SUCC 125 MG/2 ML VIAL IV SCH (22:07)
[2020-07-27] VITALS (98 sets, daily range): BP systolic 85–164; BP diastolic 48–114
[2020-07-27] MEDS: IPRATROPIUM/ALBUTEROL 0.5-3(2.5)MG/3ML NEB HHN SCH ×7 (01:25→23:54)
[2020-07-27] MEDS: MIDAZOLAM HCL 100 MG in DEXT 5% WATER 80 ML IV PRN ×4 (02:16→23:34)
[2020-07-27] MEDS: PROPOFOL 10MG/ML 100ML 100 ML IV PRN ×5 (04:46→22:47)
[2020-07-27] MEDS: FENTANYL CITRATE/PF 2,500 MCG in SODIUM CHLORIDE 0.9% 200 ML IV PRN ×3 (04:47→20:02)
[2020-07-27 05:02] LABS: BG BASE EXCESS 1.4 mmol/L (-2.0-2.0); BG CARBOXYHEMOGLOBIN 1.2 % (0.5-1.5); BG DEOXYHEMOGLOBIN 19.4 % (0.0-5.0); BG FRACTION INSPIRED OXYGEN 100; BG HCO3 ACT 27.2 mmol/L (22.0-26.0); BG METHEMOGLOBIN 0.1 % (0.0-1.5); BG OXYGEN SATURATION 80.3 % (92.0-98.5); BG OXYHEMOGLOBIN 79.3 % (94.0-97.0); BG PCO2 48.1 mmHg (35.0-45.0); BG PIP 0 cmH2O; BG PO2 48.1 mmHg (75.0-100.0); BG TOTAL RESPIRATORY RATE 0 b/min; BG VENT MODE VENT - APRV
[2020-07-27] MEDS: METOCLOPRAMIDE HCL 10MG/2ML VIAL IV SCH ×3 (05:10→18:24)
[2020-07-27] MEDS: PHENYLEPHRINE 50 MG in DEXT 5% WATER 245 ML IV PRN (05:10)
[2020-07-27] MEDS: METHYLPREDNISOLONE SOD SUCC 125 MG/2 ML VIAL IV SCH ×3 (05:10→22:03)
[2020-07-27] MEDS: BLOOD SUGAR DIAGNOSTIC STRIP TEST SCH ×4 (05:19→23:35)
[2020-07-27] MEDS: INSULIN LISPRO 100 UNITS/ML SUBCUT SCH ×3 (05:21→18:26)
[2020-07-27 05:33] LABS: HEMATOCRIT. 33.6 % (42.0-52.0); HEMOGLOBIN. 11.3 g/dL (14.0-18.0); MEAN CORPUSCULAR HEMOGLOBIN 31.8 pg (28.0-32.0); MEAN CORPUSCULAR VOLUME 94.7 fL (80.0-94.0); MEAN PLATELET VOLUME 11.4 fl (7.4-10.4); PLATELET 60 x1000/uL (130-400); RED BLOOD CELL COUNT 3.54 mill/uL (4.7-6.1); RED CELL DISTRIBUTION WIDTH 13.2 % (11.6-14.6)
[2020-07-27 05:39] LABS: CHLORIDE 107 mEq/L (98-107)
[2020-07-27 05:46] LABS: PHOSPHORUS 3.7 mg/dL (2.5-4.9)
[2020-07-27] MEDS: FAMOTIDINE 20MG/2ML VIAL IV SCH (08:01)
[2020-07-27] MEDS: MIDODRINE HCL 5MG TABLET PO SCH ×3 (08:01→18:25)
[2020-07-27 09:46] LABS: BG BASE EXCESS 0.9 mmol/L (-2.0-2.0); BG CARBOXYHEMOGLOBIN 1.3 % (0.5-1.5); BG DEOXYHEMOGLOBIN 16.1 % (0.0-5.0); BG FRACTION INSPIRED OXYGEN 100; BG HCO3 ACT 28.2 mmol/L (22.0-26.0); BG METHEMOGLOBIN 0.3 % (0.0-1.5); BG OXYGEN SATURATION 83.6 % (92.0-98.5); BG OXYHEMOGLOBIN 82.3 % (94.0-97.0); BG PCO2 57.4 mmHg (35.0-45.0); BG PH 7.309 (7.350-7.450); BG PO2 54.6 mmHg (75.0-100.0); BG SAMPLE SITE RIGHT RADIAL; BG TOTAL HEMOGLOBIN 12.4 g/dL (12.0-18.0); BG VENT MODE PRVC
[2020-07-27 13:00] LABS: PLATELET ESTIMATE DECREASED
[2020-07-27] MEDS: DEXTROSE 5% WATER 1,000 ML IV SCH (20:17)
[2020-07-28] VITALS (96 sets, daily range): BP systolic 95–156; BP diastolic 51–100
[2020-07-28] MEDS: METOCLOPRAMIDE HCL 10MG/2ML VIAL IV SCH ×4 (00:13→18:12)
[2020-07-28] MEDS: PROPOFOL 10MG/ML 100ML 100 ML IV PRN ×6 (02:41→21:03)
[2020-07-28] MEDS: IPRATROPIUM/ALBUTEROL 0.5-3(2.5)MG/3ML NEB HHN SCH ×5 (03:51→21:39)
[2020-07-28] MEDS: FENTANYL CITRATE/PF 2,500 MCG in SODIUM CHLORIDE 0.9% 200 ML IV PRN ×3 (03:52→18:18)
[2020-07-28 05:14] LABS: HEMATOCRIT. 35.1 % (42.0-52.0); HEMOGLOBIN. 11.7 g/dL (14.0-18.0); MEAN CORPUSCULAR HEMOGLOBIN 31.4 pg (28.0-32.0); MEAN CORPUSCULAR VOLUME 94.2 fL (80.0-94.0); MEAN PLATELET VOLUME 11.2 fl (7.4-10.4); PLATELET 96 x1000/uL (130-400); RED BLOOD CELL COUNT 3.73 mill/uL (4.7-6.1); RED CELL DISTRIBUTION WIDTH 13.6 % (11.6-14.6)
[2020-07-28 05:27] LABS: CHLORIDE 108 mEq/L (98-107)
[2020-07-28] MEDS: METHYLPREDNISOLONE SOD SUCC 125 MG/2 ML VIAL IV SCH ×3 (05:57→21:03)
[2020-07-28] MEDS: INSULIN LISPRO 100 UNITS/ML SUBCUT SCH ×4 (05:58→18:12)
[2020-07-28] MEDS: BLOOD SUGAR DIAGNOSTIC STRIP TEST SCH ×3 (05:58→18:12)
[2020-07-28] MEDS: MIDAZOLAM HCL 100 MG in DEXT 5% WATER 80 ML IV PRN ×3 (06:12→18:18)
[2020-07-28 08:23] LABS: BG BASE EXCESS 4.5 mmol/L (-2.0-2.0); BG CARBOXYHEMOGLOBIN 0.9 % (0.5-1.5); BG DEOXYHEMOGLOBIN 8.2 % (0.0-5.0); BG FRACTION INSPIRED OXYGEN 100; BG HCO3 ACT 31.3 mmol/L (22.0-26.0); BG METHEMOGLOBIN 0.1 % (0.0-1.5); BG OXYGEN SATURATION 91.7 % (92.0-98.5); BG OXYHEMOGLOBIN 90.8 % (94.0-97.0); BG PCO2 56.9 mmHg (35.0-45.0); BG PH 7.358 (7.350-7.450); BG PO2 66.6 mmHg (75.0-100.0); BG SAMPLE SITE RIGHT RADIAL; BG TOTAL HEMOGLOBIN 11.8 g/dL (12.0-18.0); BG VENT MODE PRVC
[2020-07-28] MEDS: FAMOTIDINE 20MG/2ML VIAL IV SCH (09:12)
[2020-07-28] MEDS: MIDODRINE HCL 5MG TABLET PO SCH ×3 (09:13→18:11)
[2020-07-28] MEDS ORDERED: LACTULOSE 20G/30ML UDC PO NR (11:00)
[2020-07-28 11:45] LABS: PLATELET ESTIMATE DECREASED
[2020-07-28] MEDS: DEXTROSE 5% WATER 1,000 ML IV SCH (18:17)
[2020-07-29] VITALS (96 sets, daily range): BP systolic 104–154; BP diastolic 57–88
[2020-07-29] MEDS: IPRATROPIUM/ALBUTEROL 0.5-3(2.5)MG/3ML NEB HHN SCH ×6 (00:26→20:15)
[2020-07-29] MEDS: BLOOD SUGAR DIAGNOSTIC STRIP TEST SCH ×5 (00:38→23:49)
[2020-07-29] MEDS: INSULIN LISPRO 100 UNITS/ML SUBCUT SCH ×4 (00:38→18:00)
[2020-07-29] MEDS: METOCLOPRAMIDE HCL 10MG/2ML VIAL IV SCH ×5 (00:39→23:17)
[2020-07-29] MEDS: FENTANYL CITRATE/PF 2,500 MCG in SODIUM CHLORIDE 0.9% 200 ML IV PRN ×3 (03:14→19:24)
[2020-07-29] MEDS: PROPOFOL 10MG/ML 100ML 100 ML IV PRN ×5 (04:42→20:39)
[2020-07-29] MEDS: MIDAZOLAM HCL 100 MG in DEXT 5% WATER 80 ML IV PRN ×3 (05:08→20:41)
[2020-07-29 05:22] LABS: CHLORIDE 107 mEq/L (98-107)
[2020-07-29 05:29] LABS: PHOSPHORUS 3.7 mg/dL (2.5-4.9)
[2020-07-29] MEDS: METHYLPREDNISOLONE SOD SUCC 125 MG/2 ML VIAL IV SCH ×3 (05:42→21:44)
[2020-07-29 05:55] LABS: HEMATOCRIT. 33.8 % (42.0-52.0); HEMOGLOBIN. 11.2 g/dL (14.0-18.0); MEAN CORPUSCULAR HEMOGLOBIN 31.4 pg (28.0-32.0); MEAN CORPUSCULAR VOLUME 94.6 fL (80.0-94.0); MEAN PLATELET VOLUME 10.6 fl (7.4-10.4); PLATELET 74 x1000/uL (130-400); RED BLOOD CELL COUNT 3.58 mill/uL (4.7-6.1); RED CELL DISTRIBUTION WIDTH 13.9 % (11.6-14.6)
[2020-07-29] MEDS: FAMOTIDINE 20MG/2ML VIAL IV SCH (08:02)
[2020-07-29] MEDS: MIDODRINE HCL 5MG TABLET PO SCH ×3 (08:02→18:06)
[2020-07-29 08:03] LABS: PLATELET ESTIMATE DECREASED
[2020-07-29 10:12] LABS: BG BASE EXCESS 3.8 mmol/L (-2.0-2.0); BG CARBOXYHEMOGLOBIN 0.8 % (0.5-1.5); BG DEOXYHEMOGLOBIN 10.6 % (0.0-5.0); BG FRACTION INSPIRED OXYGEN 100; BG HCO3 ACT 30.4 mmol/L (22.0-26.0); BG METHEMOGLOBIN 0.3 % (0.0-1.5); BG OXYGEN SATURATION 89.3 % (92.0-98.5); BG OXYHEMOGLOBIN 88.3 % (94.0-97.0); BG PCO2 55.3 mmHg (35.0-45.0); BG PH 7.358 (7.350-7.450); BG PO2 61.4 mmHg (75.0-100.0); BG SAMPLE SITE RIGHT RADIAL; BG TOTAL HEMOGLOBIN 11.6 g/dL (12.0-18.0); BG VENT MODE VENT - PRVC
[2020-07-29 11:03] LABS: BG PEEP (cmH2O) 10 cmH2O
[2020-07-29] MEDS ORDERED: MAGNESIUM 2 G PREMIX 50 ML IV NR (12:00)
[2020-07-29] MEDS: DOCUSATE SODIUM SUGAR FREE 100MG/10ML UDC NG SCH (15:00)
[2020-07-29] MEDS: DEXTROSE 5% WATER 1,000 ML IV SCH (15:01)
[2020-07-30] VITALS (96 sets, daily range): BP systolic 107–140; BP diastolic 56–92
[2020-07-30] MEDS: IPRATROPIUM/ALBUTEROL 0.5-3(2.5)MG/3ML NEB HHN SCH ×6 (00:01→20:41)
[2020-07-30] MEDS: INSULIN LISPRO 100 UNITS/ML SUBCUT SCH ×4 (00:39→18:19)
[2020-07-30] MEDS: FENTANYL CITRATE/PF 2,500 MCG in SODIUM CHLORIDE 0.9% 200 ML IV PRN ×4 (02:14→23:51)
[2020-07-30] MEDS: PROPOFOL 10MG/ML 100ML 100 ML IV PRN ×4 (02:23→20:04)
[2020-07-30] MEDS: MIDAZOLAM HCL 100 MG in DEXT 5% WATER 80 ML IV PRN ×4 (03:22→16:47)
[2020-07-30] MEDS: DEXTROSE 5% WATER 1,000 ML IV SCH ×2 (05:19→22:03)
[2020-07-30] MEDS: METHYLPREDNISOLONE SOD SUCC 125 MG/2 ML VIAL IV SCH (05:29)
[2020-07-30] MEDS: METOCLOPRAMIDE HCL 10MG/2ML VIAL IV SCH ×3 (05:29→18:18)
[2020-07-30 06:02] LABS: HEMOGLOBIN. 11.8 g/dL (14.0-18.0); MEAN CORPUSCULAR HEMOGLOBIN 31.2 pg (28.0-32.0); MEAN CORPUSCULAR VOLUME 94.9 fL (80.0-94.0); MEAN PLATELET VOLUME 10.2 fl (7.4-10.4); PLATELET 77 x1000/uL (130-400); RED BLOOD CELL COUNT 3.79 mill/uL (4.7-6.1); RED CELL DISTRIBUTION WIDTH 13.7 % (11.6-14.6)
[2020-07-30 06:13] LABS: CHLORIDE 105 mEq/L (98-107)
[2020-07-30] MEDS: BLOOD SUGAR DIAGNOSTIC STRIP TEST SCH ×3 (06:24→18:18)
[2020-07-30 08:29] LABS: BG CARBOXYHEMOGLOBIN 0.4 % (0.5-1.5); BG DEOXYHEMOGLOBIN 9.1 % (0.0-5.0); BG HCO3 ACT 27.8 mmol/L (22.0-26.0); BG METHEMOGLOBIN 0.2 % (0.0-1.5); BG OXYGEN SATURATION 90.8 % (92.0-98.5); BG OXYHEMOGLOBIN 90.3 % (94.0-97.0); BG PCO2 48.5 mmHg (35.0-45.0); BG PH 7.376 (7.350-7.450); BG PO2 63.5 mmHg (75.0-100.0); BG SAMPLE SITE RIGHT RADIAL; BG TOTAL HEMOGLOBIN 11.9 g/dL (12.0-18.0); BG VENT MODE VENT/PRVC
[2020-07-30] MEDS: MIDODRINE HCL 5MG TABLET PO SCH ×3 (08:51→18:18)
[2020-07-30] MEDS: DOCUSATE SODIUM SUGAR FREE 100MG/10ML UDC NG SCH (08:51)
[2020-07-30] MEDS: FAMOTIDINE 20MG/2ML VIAL IV SCH (08:52)
[2020-07-30] MEDS: METHYLPREDNISOLONE SOD SUCC 40 MG/ML VIAL IV SCH ×2 (13:30→22:03)
[2020-07-30 18:45] LABS: PLATELET ESTIMATE DECREASED
[2020-07-31] VITALS (83 sets, daily range): BP systolic 77–160; BP diastolic 6–108
[2020-07-31] MEDS: BLOOD SUGAR DIAGNOSTIC STRIP TEST SCH ×4 (00:39→18:11)
[2020-07-31] MEDS: METOCLOPRAMIDE HCL 10MG/2ML VIAL IV SCH ×3 (00:39→11:52)
[2020-07-31] MEDS: INSULIN LISPRO 100 UNITS/ML SUBCUT SCH ×4 (00:46→18:00)
[2020-07-31] MEDS: MIDAZOLAM HCL 100 MG in DEXT 5% WATER 80 ML IV PRN ×2 (00:49→07:34)
[2020-07-31] MEDS: IPRATROPIUM/ALBUTEROL 0.5-3(2.5)MG/3ML NEB HHN SCH ×5 (01:01→20:55)
[2020-07-31] MEDS: PROPOFOL 10MG/ML 100ML 100 ML IV PRN ×2 (01:02→06:33)
[2020-07-31 05:58] LABS: HEMATOCRIT. 35.9 % (42.0-52.0); HEMOGLOBIN. 11.8 g/dL (14.0-18.0); MEAN CORPUSCULAR HEMOGLOBIN 31.2 pg (28.0-32.0); MEAN CORPUSCULAR VOLUME 94.7 fL (80.0-94.0); MEAN PLATELET VOLUME 10.5 fl (7.4-10.4); PLATELET 87 x1000/uL (130-400); RED BLOOD CELL COUNT 3.79 mill/uL (4.7-6.1); RED CELL DISTRIBUTION WIDTH 14.2 % (11.6-14.6)
[2020-07-31 06:03] LABS: CHLORIDE 103 mEq/L (98-107)
[2020-07-31 06:09] LABS: PHOSPHORUS 3.4 mg/dL (2.5-4.9)
[2020-07-31] MEDS: METHYLPREDNISOLONE SOD SUCC 40 MG/ML VIAL IV SCH ×2 (06:35→14:38)
[2020-07-31] MEDS: DILTIAZEM HCL 125 MG in DEXT 5% WATER 100 ML IV PRN (07:11)
[2020-07-31] MEDS: FENTANYL CITRATE/PF 2,500 MCG in SODIUM CHLORIDE 0.9% 200 ML IV PRN (07:27)
[2020-07-31 09:18] LABS: BG BASE EXCESS -13.6 mmol/L (-2.0-2.0); BG CARBOXYHEMOGLOBIN 0.5 % (0.5-1.5); BG DEOXYHEMOGLOBIN 1.5 % (0.0-5.0); BG FRACTION INSPIRED OXYGEN 90; BG HCO3 ACT 12.3 mmol/L (22.0-26.0); BG METHEMOGLOBIN 0.3 % (0.0-1.5); BG OXYGEN SATURATION 98.5 % (92.0-98.5); BG OXYHEMOGLOBIN 97.7 % (94.0-97.0); BG PCO2 29.4 mmHg (35.0-45.0); BG PH 7.241 (7.350-7.450); BG PO2 158.2 mmHg (75.0-100.0); BG SAMPLE SITE RIGHT RADIAL; BG TOTAL HEMOGLOBIN 12.7 g/dL (12.0-18.0); BG VENT MODE VENT - PRVC
[2020-07-31] MEDS: DOCUSATE SODIUM SUGAR FREE 100MG/10ML UDC NG SCH (10:03)
[2020-07-31] MEDS: FAMOTIDINE 20MG/2ML VIAL IV SCH (10:04)
[2020-07-31] MEDS: MIDODRINE HCL 5MG TABLET PO SCH ×3 (10:04→18:11)
[2020-07-31] MEDS: PHENYLEPHRINE 50 MG in DEXT 5% WATER 245 ML IV PRN ×4 (10:05→18:54)
[2020-07-31] MEDS ORDERED: SODIUM BICARBONATE 8.4% 1 MEQ/ML 50ML SYR IV NR ×4 (11:15→19:00)
[2020-07-31] MEDS: NOREPINEPHRINE 8 MG in DEXTROSE 5% WATER 250 ML IV PRN (13:23)
[2020-07-31 13:24] LABS: BG BASE EXCESS -10.9 mmol/L (-2.0-2.0); BG CARBOXYHEMOGLOBIN 2.1 % (0.5-1.5); BG DEOXYHEMOGLOBIN 7.5 % (0.0-5.0); BG FRACTION INSPIRED OXYGEN 90; BG HCO3 ACT 17.3 mmol/L (22.0-26.0); BG METHEMOGLOBIN 0.1 % (0.0-1.5); BG OXYGEN SATURATION 92.3 % (92.0-98.5); BG OXYHEMOGLOBIN 90.3 % (94.0-97.0); BG PCO2 47.6 mmHg (35.0-45.0); BG PH 7.178 (7.350-7.450); BG PO2 79.5 mmHg (75.0-100.0); BG SAMPLE SITE RIGHT RADIAL; BG TOTAL HEMOGLOBIN 12.6 g/dL (12.0-18.0); BG VENT MODE PRVC
[2020-07-31] MEDS: NOREPINEPHRINE 32 MG in DEXT 5% WATER 218 ML IV PRN ×2 (15:08→18:55)
[2020-07-31] MEDS: VASOPRESSIN 20 UNIT in SODIUM CHLORIDE 0.9% 99 ML IV PRN ×2 (16:43→18:54)
[2020-07-31 17:11] LABS: BG BASE EXCESS -15.8 mmol/L (-2.0-2.0); BG CARBOXYHEMOGLOBIN 1.9 % (0.5-1.5); BG DEOXYHEMOGLOBIN 3.7 % (0.0-5.0); BG FRACTION INSPIRED OXYGEN 100; BG HCO3 ACT 12.4 mmol/L (22.0-26.0); BG METHEMOGLOBIN 0.3 % (0.0-1.5); BG OXYGEN SATURATION 96.2 % (92.0-98.5); BG OXYHEMOGLOBIN 94.1 % (94.0-97.0); BG PCO2 37.9 mmHg (35.0-45.0); BG PH 7.133 (7.350-7.450); BG PO2 108.3 mmHg (75.0-100.0); BG SAMPLE SITE RIGHT RADIAL; BG VENT MODE VENT - PRVC
[2020-07-31] MEDS ORDERED: METOCLOPRAMIDE HCL 10MG/2ML VIAL IV SCH (18:00)
[2020-07-31] MEDS ORDERED: DIGOXIN 500MCG/2ML AMP IV NR ×3 (18:30→20:30)
[2020-07-31 19:04] LABS: PLATELET ESTIMATE DECREASED
[2020-07-31] MEDS ORDERED: PHENYLEPHRINE 100 MG in DEXT 5% WATER 240 ML IV PRN (20:15)
== END 2020-07-31 22:02 | disposition expired | DRG 870 ==
LOC: ER 12:11 → MICUSO 16:43 → EDBEDREQSVC 16:44 → EDBEDREQ 16:44 → EDBEDREQTM 16:47 → EDBEDREQ 07-11 18:35 → MICUSO 07-12 11:54
PROVIDERS: ADMIT Internal Medicine; ATTEND Internal Medicine
PROC: 5A1955Z Respiratory Ventilation, Greater than 96 Consecutive Hours (ICD-10-PCS; principal; 2020-07-10)
PROC: 0BH18EZ Insertion of Endotracheal Airway into Trachea, Via Natural or Artificial Opening Endoscopic (ICD-10-PCS; 2020-07-10)
PROC: XW13325 Transfusion of Convalescent Plasma (Nonautologous) into Peripheral Vein, Percutaneous Approach, New Technology Group 5 (ICD-10-PCS; 2020-07-11)
PROC: 02HV33Z Insertion of Infusion Device into Superior Vena Cava, Percutaneous Approach (ICD-10-PCS; 2020-07-11)
PROC: B548ZZA Ultrasonography of Superior Vena Cava, Guidance (ICD-10-PCS; 2020-07-11)
PROC: XW033E5 Introduction of Remdesivir Anti-infective into Peripheral Vein, Percutaneous Approach, New Technology Group 5 (ICD-10-PCS; 2020-07-11)
DX: A41.89 Other specified sepsis (principal); U07.1 COVID-19; J12.89 Other viral pneumonia; J96.01 Acute respiratory failure with hypoxia; R65.21 Severe sepsis with septic shock; N17.9 Acute kidney failure, unspecified; E87.1 Hypo-osmolality and hyponatremia; G93.40 Encephalopathy, unspecified; E87.0 Hyperosmolality and hypernatremia; E87.4 Mixed disorder of acid-base balance; J93.82 Other air leak; T79.7XXA Traumatic subcutaneous emphysema, initial encounter; Z99.11 Dependence on respirator [ventilator] status; D68.69 Other thrombophilia; M62.82 Rhabdomyolysis; I10 Essential (primary) hypertension; R00.0 Tachycardia, unspecified; E83.42 Hypomagnesemia; E78.5 Hyperlipidemia, unspecified; E11.65 Type 2 diabetes mellitus with hyperglycemia; I48.91 Unspecified atrial fibrillation; Z66 Do not resuscitate; X58.XXXA Exposure to other specified factors, initial encounter; D69.6 Thrombocytopenia, unspecified; E11.649 Type 2 diabetes mellitus with hypoglycemia without coma; E78.00 Pure hypercholesterolemia, unspecified; E87.5 Hyperkalemia; Z88.1 Allergy status to other antibiotic agents; Z86.73 Personal history of transient ischemic attack (TIA), and cerebral infarction without residual deficits; Z79.82 Long term (current) use of aspirin; Y93.89 Activity, other specified; Y92.89 Other specified places as the place of occurrence of the external cause; Y99.8 Other external cause status; Z79.899 Other long term (current) drug therapy
CPT/HCPCS: 36415; 36600; 71045; 71275; 74018; 76770; 76937; 80048; 80053; 80061; 80202; 81003; 82043; 82330; 82375; 82550; 82553; 82570; 82784; 82805; 82962; 83036; 83520; 83605; 83735; 83935; 84100; 84145; 84155; 84165; 84300; 84439; 84443; 84478; 84484; 85025; 85379; 86038; 86160; 86225; 86256; 86334; 86803; 86850; 86900; 86927; 87070; 87340; 87635; 87804; 93005; 94002; 94003; 94640; 99291; A6261; C1725; J0456; J0696; J1100; J1160; J1650; J1815; J1940; J2060; J2250; J2270; J2370; J2405; J2543; J2704; J2765; J2920; J2930; J3010; J3370; J3475; J3490; J7030; J7050; J7060; J7070; P9017; Q9957; Q9967